=== PATIENT | female | born 1935 | race Caucasian/White ===

== ENCOUNTER 2016-07-07 00:31 | Inpatient (IN) | payer MEDICARE, OTHER ==
[2016-07-07] VITALS (10 sets, daily range): BP systolic 124–162; BP diastolic 58–71; PULSE 59–69; RESP 17–20; TEMP 97.8–98.4; O2SAT 94–100
[~2016-07-07] VITALS: Ht 160 cm; Wt 75.0 kg
[~2016-07-07 00:31] MED LIST: BACT800T5 PO; CALC500T21 PO; CLOP75 PO; DICL-86 PO; ESCI20TA PO; FOLI1 PO; INFL100P IV; LANSO15 PO; LEVO150T7 PO; METH2.5 PO; PRED5 PO; ROSU40 PO
[2016-07-07] MEDS ORDERED: CALC1TAB12 PO (00:54)
[2016-07-07] MEDS ORDERED: ROSU20 PO (00:54)
[2016-07-07] MEDS ORDERED: LEVO150T7 PO (00:54)
[2016-07-07] MEDS ORDERED: INFL100P (00:54)
[2016-07-07] MEDS ORDERED: PLAV75TA29 PO (00:54)
[2016-07-07] MEDS ORDERED: LEXA20TA PO (00:54)
[2016-07-07] MEDS ORDERED: FOLI1TAB4 PO (00:54)
[2016-07-07] MEDS ORDERED: DICL75TA PO (00:54)
[2016-07-07] MEDS ORDERED: ONDANSETRON HCL 4 MG/2 ML VIAL IVP ONE (01:00)
[2016-07-07] MEDS ORDERED: DIPHTH/TETANUS/ACEL PERTUSSIS (BOOSTER) 0.5 ML VIAL/PFS IM ONE (01:00)
[2016-07-07] MEDS: SODIUM CHLOR 0.9% 1000 ML INJ 1,000 ML IV SCH ×3 (01:09→20:44)
--- NOTE | 2016-07-07 01:14 | RADRPT ---
EXAM DATE/TIME: 07/07/2016 01:10 [facility] COMPARISON: No previous studies available for comparison. INDICATIONS : Patient states flu-like symptoms since yesterday morning and passed out twice and fell. MEDICAL HISTORY : Hypertension. Cardiovascular disease Carcinoma, breast. SURGICAL HISTORY : Left breast. ENCOUNTER: Initial ACUITY: 1 day PAIN SCORE: 0/10 LOCATION: Bilateral chest FINDINGS: There is an [id number] in place from the right internal jugular approach with the tip at the SVC. The heart size is mildly enlarged. The lungs are grossly clear. Spurs are seen in the thoracic spine. Clips are seen in the left axillary region. CONCLUSION: Mild cardiomegaly. Geo Rosado MD on July 07, 2016 at 1:12 Board Certified Radiologist. This report was verified electronically.
[2016-07-07 01:17] LABS: AUTOMATED NEUTROPHIL # 5.3 TH/MM3 (1.8-7.7); BASOPHIL # 0.1 TH/MM3 (0-0.2); BASOPHIL % 0.7 % (0.0-2.0); EOSINOPHIL % 0.6 % (0.0-4.0); HEMATOCRIT 45.7 % (35.0-46.0); HEMO FLAGS DIFF FINAL; LYMPH % 16.5 % (9.0-44.0); LYMPHOCYTE # 1.3 TH/MM3 (1.0-4.8); MEAN CELL VOLUME 88.9 FL (80.0-100.0); MEAN CORPUSCULAR HEMOGLOBIN 31.2 PG (27.0-34.0); MEAN CORPUSCULAR HGB CONC 35.1 % (32.0-36.0); MONO % 13.5 % (0.0-8.0); NEUT % 68.7 % (16.0-70.0); PLATELET COUNT 135 TH/MM3 (150-450); RED BLOOD COUNT 5.15 MIL/MM3 (4.00-5.30); RED CELL DISTRIBUTION WIDTH 15.7 % (11.6-17.2); WHITE BLOOD COUNT 7.7 TH/MM3 (4.0-11.0)
--- NOTE | 2016-07-07 01:30 | PD ---
HPI Chief Complaint: Fall Time Seen by Provider: 00:39 Travel History International Travel<30 days: No Contact w/Intl Traveler<30days: No Traveled to known affect area: No History of Present Illness HPI The patient is an 81 year old female who presents to the [facility] emergency department with a history of dizziness with recurrent falling 2 at home prior to arrival. The patient reports that she acquired a superficial laceration of the left ear, abrasion of the right knee with falling the first time. She denies hurting herself the second time. She reports that she did have a brief loss of consciousness after hitting her head the first time. She reports that she also felt disoriented. The patient reports that she first began to have nasal congestion this past . She reports that she does have some chronic sinus issues. She went and saw her primary care physician regarding this this morning and was given a prescription for an antihistamine and a nasal steroid. The patient reports that in the evening today she began to have lower abdominal pain that is reportedly severe, sharp in character and present in bilateral lower quadrants. The patient reports that the pain was coming and going. She reports that she had 4-5 episodes of loose stools associated with this. She denies having any blood in her stool or black or tarry stools. She denies having any mucus in her stool. She denies having any known sick contacts. She denies being on any antibiotic recently. She is immunocompromised related to being on prednisone when necessary and Remicade injections for rheumatoid arthritis. The patient reports that she's had shortness of breath this evening. She denies any history of lung disease. She reports that she did have a pulmonary embolism in 2009. She denies having any chest pain. She denies having any one-sided weakness, slurred speech, facial droop, difficulty with word finding ability, or vision changes associated with this. The patient denies any recent fevers, cough, neck pain, vomiting, diarrhea, urinary symptoms, or other neurologic symptoms. [facility] Past Medical History Narrative Medical The patient's past medical history is significant for coronary artery disease status post he reportedly small myocardial infarction in 2000, hypothyroid disorder, hyperlipidemia, obstructive sleep apnea, left breast lumpectomy, acid reflux, osteoporosis, rheumatoid arthritis. Hx Anticoagulant Therapy: Yes Arthritis: Yes (RHEUMATOID ARTHRITIS) Asthma: No Blood Disorders: No Anxiety: Yes Depression: Yes Heart Rhythm Problems: No Cancer: Yes (LEFT BREAST -LUMPECTOMY ) Cardiovascular Problems: Yes (MD) High Cholesterol: No Chemotherapy: No Chest Pain: No Congestive Heart Failure: No COPD: No Cerebrovascular Accident: No Diabetes: No Endocrine: Yes Gastrointestinal Disorders: Yes (GERD) Glaucoma: No Genitourinary: No Headaches: Yes Hepatitis: No Hiatal Hernia: No Hypertension: Yes Immune Disorder: No Musculoskeletal: Yes (OA, RA, OSTEOPOROSIS) Neurologic: No Psychiatric: Yes (ANXIETY) Reproductive: No Respiratory: Yes (HX PE, SLEEP APNEA/ CPAP) Myocardial Infarction: No Radiation Therapy: Yes Seizures: No Sleep Apnea: No Thyroid Disease: Yes PNEUMOCCOCAL Vaccine (Year): 2 ?: Not Past Surgical History Narrative Surgical The patient's past surgical history is significant for a hysterectomy, left breast lumpectomy Abdominal Surgery: No AICD: No Body Medical Devices: HARDWARE LEFT INDEX & SMALL FINGER Cardiac Surgery: No Ear Surgery: No Endocrine Surgery: No Eye Surgery: Yes (RASHIDA. CATARACT EXTRACT.) Genitourinary Surgery: No Gynecologic Surgery: Yes (D&C) Joint Replacement: No Oral Surgery: Yes (TONSILLECTOMY) Pacemaker: No Thoracic Surgery: Yes (LEFT BREAST LUMPECTOMY) Other Surgery: Yes Social History Alcohol Use: No Tobacco Use: No Substance Use: No Allergies-Medications (Allergen,Severity, Reaction): Coded Allergies: Aspirin (Verified Allergy, Severe, hives, 07/07/16) Reported Meds & Prescriptions Reported Meds & Active Scripts Active Reported Crestor (Rosuvastatin Calcium) 20 Mg Tab 20 Mg PO DAILY Levothyroxine (Levothyroxine Sodium) 150 Mcg Tab 150 Mcg PO DAILY Remicade Inj (Infliximab) 100 Mg Inj 0 Folate (Folic Acid) 1 Mg Tab 1 Mg PO DAILY Lexapro (Escitalopram Oxalate) 20 Mg Tab 20 Mg PO DAILY Diclofenac Sodium DR (Diclofenac Sodium) 75 Mg Tabdr 75 Mg PO DAILY Plavix (Clopidogrel Bisulfate) 75 Mg Tab 75 Mg PO DAILY Calcium 500 +D (Calcium Carbonate-Cholecalciferol) 500-400 Mg-Unit Tab 1 Tab PO DAILY Review of Systems Except as stated in HPI: all other systems reviewed are Neg General / Constitutional: No: Fever Eyes: No: Visual changes HENT: Positive: Rhinitis, Rhinorrhea, Congestion, No: Headaches Cardiovascular: Positive: Dyspnea on exertion, No: Chest Pain or Discomfort Respiratory: Positive: Shortness of Breath, No: Cough Gastrointestinal: Positive: Nausea, Diarrhea, Abdominal Pain, Changes in Bowel Habits, No: Vomiting, Hematemesis, Hematochezia, Indigestion, Dysphagia, Loss of Appetite Genitourinary: No: Dysuria Musculoskeletal: No: Pain Skin: No Rash Neurologic: Positive: Weakness (generalized weakness), Dizziness, Change in Mentation (disorientation after hitting her head that is now resolved), No: Focal Abnormalities, Slurred Speech, Paresthesia, Sensory Disturbance Psychiatric: No: Depression Endocrine: No: Polydipsia Hematologic/Lymphatic: No: Easy Bruising Physical Exam Narrative General: The patient is a well-developed well-nourished female, with conversational dyspnea, however her O2 saturations on room air 100%. Head and Neck exam: Head is normocephalic, evidence of a superficial laceration along the left lateral pinna, no active bleeding is noted. This is not a through and through laceration. There is no cartilage involvement. Eyes: Pupils are equal round and reactive to light. Nose: Midline septum with pink mucous membranes Mouth: Dentition unremarkable. Moist mucus membranes. Posterior oropharynx is not erythematous. No tonsillar hypertrophy. Uvula midline. Airway patent. Neck: No palpable lymphadenopathy. No nuchal rigidity. No thyromegaly. Cardiovascular: Regular rate and rhythm without murmurs, gallops, or rubs. Lungs: The patient has decreased breath sounds at the bases bilaterally, worse on the left compared to the right. The patient has no wheezes, rhonchi, or crackles audible. Abdomen: Soft, without tenderness to palpation in all 4 quadrants of the abdomen. No guarding, rebound, or rigidity. Normal bowel sounds are audible. No tenderness on palpation of McBurney's point. The patient has no abdominal tenderness on palpation at this time. The patient denies having any pain at this time. Extremities: No clubbing, cyanosis, or edema. 2+ pulses in all 4 extremities. The patient has an abrasion superficially over the right anterior knee . There is no step- off or crepitus. The patient has full range of active motion without any pain. The patient has no ligament laxity. No effusion. A ballotable patella. Back: No spinous process tenderness to palpation. No costovertebral angle tenderness to palpation. Neurologic Exam: Cranial nerves 2-12 were intact on exam. Strength is 5/5 in all 4 extremities. No sensory deficits noted. Data Data Last Documented VS Vital Signs Date Time Temp Pulse Resp B/P Pulse Ox O2 Delivery O2 Flow Rate FiO2 07/07/16 01:16 99 Room Air 07/07/16 00:37 97.9 63 18 162/[address] Brain W/O Iv Contrast(Rout) (07/07/16 00:54) Ct Cerv Spine W/O Contrast (07/07/16 00:54) Ondansetron Inj (Zofran Inj) (07/07/16 01:00) Zqeh-Fej-Nyivyl (Booster) Inj (Boostrix (07/07/16 01:00) C Diff Toxin Pcr (07/07/16 00:54) Stool Wbc (Leukocytes) (07/07/16 00:54) Enteric Path (Stool) (07/07/16 00:54) Electrocardiogram (07/07/16 00:54) Complete Blood Count With Diff (07/07/16 00:54) Comprehensive Metabolic Panel (07/07/16 00:54) Creatine Kinase (Cpk) (07/07/16 00:54) Ckmb (Isoenzyme) Profile (07/07/16 00:54) Troponin I (07/07/16 00:54) B-Type Natriuretic Peptide (07/07/16 00:54) Prothrombin Time / Inr (Pt) (07/07/16 00:54) Act Partial Throm Time (Ptt) (07/07/16 00:54) Lipase (07/07/16 00:54) Urinalysis - C+S If Indicated (07/07/16 00:54) D-Dimer (07/07/16 00:54) Chest, Single Ap (07/07/16 00:54) Iv Access Insert/Monitor (07/07/16 00:54) Ecg Monitoring (07/07/16 00:54) Oximetry (07/07/16 00:54) Sodium Chlor 0.9% 1000 Ml Inj (Ns 1000 M (07/07/16 01:00) Lactic Acid (07/07/16 00:57) Blood Culture (07/07/16 00:57) Urine Culture (07/07/16 02:23) Ct Pulmonary Angiogram (07/07/16 03:20) Iohexol 350 Inj (Omnipaque 350 Inj) (07/07/16 03:39) Ceftriaxone Inj (Rocephin Inj) (07/07/16 03:45) Place In Observation (07/07/16 ) Stringer Machine Tender / Telemetry CHRIS.Q8H (07/07/16 03:51) Diet Heart Healthy (07/07/16 Breakfast) Activity Oob With Assistance (07/07/16 03:51) Acetaminophen (Tylenol) (07/07/16 04:15) Ondansetron Inj (Zofran Inj) (07/07/16 04:15) Heparin Inj (Heparin Inj) (07/07/16 09:00) Ceftriaxone Inj (Rocephin Inj) (07/08/16 05:00) Admit Order (Ed Use Only) (07/07/16 04:23) Labs Laboratory Tests Test 07/07/16 07/07/16 01:00 02:23 White Blood Count 7.7 TH/MM3 Red Blood Count 5.15 MIL/MM3 Hemoglobin 16.0 GM/DL Hematocrit 45.7 % Mean Corpuscular Volume 88.9 FL Mean Corpuscular Hemoglobin 31.2 PG Mean Corpuscular Hemoglobin 35.1 % Concent Red Cell Distribution Width 15.7 % Platelet Count 135 TH/MM3 Mean Platelet Volume 8.6 FL Neutrophils (%) (Auto) 68.7 % Lymphocytes (%) (Auto) 16.5 % Monocytes (%) (Auto) 13.5 % Eosinophils (%) (Auto) 0.6 % Basophils (%) (Auto) 0.7 % Neutrophils # (Auto) 5.3 TH/MM3 Lymphocytes # (Auto) 1.3 TH/MM3 Monocytes # (Auto) 1.0 TH/MM3 Eosinophils # (Auto) 0.0 TH/MM3 Basophils # (Auto) 0.1 TH/MM3 CBC Comment DIFF FINAL Differential Comment Prothrombin Time 11.4 SEC Prothromb Time International 1.0 RATIO Ratio Activated Partial 27.5 SEC Thromboplast Time D-Dimer Quantitative (PE/DVT) 1.64 MG/L FEU Sodium Level 140 MEQ/L Potassium Level 4.1 MEQ/L Chloride Level 107 MEQ/L Carbon Dioxide Level 26.2 MEQ/L Anion Gap 7 MEQ/L Blood Urea Nitrogen 15 MG/DL Creatinine 0.88 MG/DL Estimat Glomerular Filtration 62 ML/MIN Rate Random Glucose 131 MG/DL Lactic Acid Level 1.3 mmol/L Calcium Level 8.6 MG/DL Total Bilirubin 0.6 MG/DL Aspartate Amino Transf 27 U/L (AST/SGOT) Alanine Aminotransferase 32 U/L (ALT/SGPT) Alkaline Phosphatase 66 U/L Total Creatine Kinase 65 U/L Troponin I LESS THAN 0.02 NG/ML B-Type Natriuretic Peptide 29 PG/ML Total Protein 7.8 GM/DL Albumin 3.6 GM/DL Lipase 126 U/L Urine Color LIGHT-YELLOW Urine Turbidity HAZY Urine pH 7.5 Urine Specific [place] 1.005 Urine Protein NEG mg/dL Urine Glucose (UA) NEG mg/dL Urine Ketones NEG mg/dL Urine Occult Blood NEG Urine Nitrite NEG Urine Bilirubin NEG Urine Urobilinogen LESS THAN 2.0 MG/DL Urine Leukocyte Esterase MOD Urine RBC 4 /hpf Urine WBC 12 /hpf Urine Squamous Epithelial 1 /hpf Cells Urine Transitional Epithelial <1 /hpf Cells Urine Bacteria OCC /hpf Microscopic Urinalysis Comment CULTURE INDICATED MDM Medical Decision Making Medical Screen Exam Complete: Yes Emergency Medical Condition: Yes Medical Record Reviewed: Yes Interpretation(s) Last Impressions CT Angiography 07/07/16319 Signed Impressions: Service Date/Time: Thursday, July 07, 2016 03:37 - CONCLUSION: No pulmonary embolus. Geo Rosado MD Head CT 07/07/1653 Signed Impressions: Service Date/Time: Thursday, July 07, 2016 01:50 - CONCLUSION: 1. No acute intracranial abnormality. 2. Bilateral areas of suspected prior infarction. Geo Rosado MD Chest X-Ray 07/07/1653 Signed Impressions: Service Date/Time: Thursday, July 07, 2016 01:10 - CONCLUSION: Mild cardiomegaly. Geo Rosado MD Cervical Spine CT 07/07/1653 Signed Impressions: Service Date/Time: Thursday, July 07, 2016 01:50 - CONCLUSION: No acute bony abnormality seen. There is degenerative change throughout. Geo Rosado MD Differential Diagnosis Intracranial trauma, versus cervical spine injury, versus electrolyte abnormality, versus dehydration, versus gastroenteritis, versus pulmonary embolism, versus pneumonia Narrative Course During the course of the patients emergency department visit, the patients history, examination, and differential diagnosis were reviewed with the patient. The patient had IV access obtained and blood work sent for analysis. The patient was placed on a repair armature winder with oximetry and blood pressure monitoring. An EKG was done on arrival. The patient's EKG shows a sinus rhythm heart rate of 63, no acute ST segment elevation is noted. Nonspecific T- wave abnormalities are noted. T waves are inverted in V2, V. CT scan of the head and neck was ordered. Chest x-ray, pelvic x-ray was ordered. The patient was provided normal saline IV fluids, Zofran 4 mg IV for nausea. The patients laboratory studies were reviewed and remarkable for a CBC that shows a white count 7.7, hemoglobin 16, platelets 135 with 13.5 monocytes, CMP is remarkable for glucose of 131, cardiac enzymes are negative, BNP is 29, lipase 126, lactic acid 1.3, PT PTT unremarkable, d-dimer elevated at 1.64, therefore CTA to rule out PE was ordered. Urinalysis showed moderate leukocyte esterase 4 RBCs, 12 wbc's, 1 squamous epithelial cell, occasional bacteria, culture indicated. The patient was given Rocephin 1 g IV. Radiology studies were reviewed and remarkable for a chest x-ray that showed mild cardiomegaly, no other acute abnormality. CT scan of the brain showed no acute abnormality, bilateral areas of suspected prior infarction, CT scan of the C-spine shows no acute abnormality. CTA to rule out PE shows no evidence of PE. The patients results were discussed with the patient, including the plan of care. I explained that further testing and/ or monitoring is indicated based on the patients history, examination, and/ or laboratory findings. Therefore, I recommended admission for additional evaluation. The patient expressed understanding and was agreeable with this plan. The patient was admitted to the hospital in stable condition and [facility] Physician Communication Physician Communication The patient's case was discussed with Geo Gustafson who did agree to admit the patient for further evaluation and [facility] at [facility] Diagnosis Primary Impression: Syncope Qualified Code: R55 - Syncope, unspecified syncope type Additional Impressions: Generalized weakness Shortness of breath Urinary tract infection Qualified Code: N39.0 - Urinary tract infection without hematuria, site unspecified Admitting Information Admitting Physician Requests: Admit Mary Kendall MD Jul 07, 2016 01:30
[2016-07-07 01:49] LABS: ALKALINE PHOSPHATASE 66 U/L (45-117); ALT (GPT) 32 U/L (10-53); ANION GAP 7 MEQ/L (5-15); APTT (PATIENT) 27.5 SEC (24.3-30.1); AST (GOT) 27 U/L (15-37); BICARBONATE 26.2 MEQ/L (21.0-32.0); BLOOD UREA NITROGEN 15 MG/DL (7-18); CHLORIDE 107 MEQ/L (98-107); CREATINE KINASE 65 U/L (26-192); GLOMERULAR FILTRATION RATE 62 ML/MIN (>89); POTASSIUM 4.1 MEQ/L (3.5-5.1); PROTHROMBIN TIME - PATIENT 11.4 SEC (9.8-11.6); SODIUM (NA) 140 MEQ/L (136-145); TOTAL BILIRUBIN ADULT 0.6 MG/DL (0.2-1.0)
--- NOTE | 2016-07-07 02:20 | RADRPT ---
EXAM DATE/TIME: 07/07/2016 01:50 [facility] COMPARISON: No previous studies available for comparison. INDICATIONS : Trauma. Fall. RADIATION DOSE: 31.29 CTDIvol (mGy) MEDICAL HISTORY : Cardiovascular disease. Hypertension. Carcinoma, breast. SURGICAL HISTORY : None. ENCOUNTER: Initial ACUITY: 1 day PAIN SCALE: 2/10 LOCATION: Left cranial TECHNIQUE: Multiple contiguous axial images were obtained of the head. Using automated exposure control and adj ustment of the mA and/or kV according to patient size, radiation dose was kept as low as reasonably a chievable to obtain optimal diagnostic quality images. FINDINGS: CEREBRUM: The ventricles are normal for age. There is some low density in the right basal ganglia and anterior limb of the internal capsule and at the left thalamus likely from prior infarction. No evidence of m idline shift, mass lesion, hemorrhage or acute infarction. No extra-axial fluid collections are seen . POSTERIOR FOSSA: The cerebellum and brainstem are intact. The 4th ventricle is midline. The cerebellopontine angle i s unremarkable. EXTRACRANIAL: The visualized portion of the orbits is intact. There is an air-fluid level in the right maxillary si nus. SKULL: The calvaria is intact. No evidence of skull fracture. CONCLUSION: 1. No acute intracranial abnormality. 2. Bilateral areas of suspected prior infarction. Geo Rosado MD on July 07, 2016 at 2:16 Board Certified Radiologist. This report was verified electronically.
--- NOTE | 2016-07-07 02:22 | RADRPT ---
EXAM DATE/TIME: 07/07/2016 01:50 [facility] COMPARISON: No previous studies available for comparison. INDICATIONS : Fall, hit left side of head and neck. RADIATION DOSE: 19.94 CTDIvol (mGy) MEDICAL HISTORY : Cardiovascular disease. Hypertension. Gastroesophageal reflux disease.breast cancer SURGICAL HISTORY : None. ENCOUNTER: Initial ACUITY: 1 day PAIN SCALE: 2/10 LOCATION: Left neck TECHNIQUE: Volumetric scanning of the cervical spine was performed. Multiplanar reconstructions in the sagittal, coronal and oblique axial planes were performed. Using automated exposure control and adjustment o f the mA and/or kV according to patient size, radiation dose was kept as low as reasonably achievable to obtain optimal diagnostic quality images. FINDINGS: VERTEBRAE: Normal vertebral body height. ALIGNMENT: No evidence of subluxation. C2-C3: The bony spinal canal is normal in size. No evidence of disc bulge or herniation. The neural forami na are bilaterally patent. There is facet hypertrophy. C3-C4: There is disc space narrowing and posterior osteophytic ridging and mild disc bulge. There is facet a nd uncovertebral hypertrophy. The neural foramina are bilaterally patent. C4-C5: There is disc space narrowing and posterior osteophytic ridging and mild disc bulge. There is facet a nd uncovertebral hypertrophy. The neural foramina are bilaterally patent C5-C6: There is disc space narrowing and posterior osteophytic ridging and mild disc bulge. There is facet a nd uncovertebral hypertrophy. The neural foramina are bilaterally patent C6-C7: There is disc space narrowing and posterior osteophytic ridging and mild disc bulge. There is facet a nd uncovertebral hypertrophy. The neural foramina are bilaterally patent. C7-T1: The bony spinal canal is normal in size. No evidence of disc bulge or herniation. The neural forami na are bilaterally patent. CONCLUSION: No acute bony abnormality seen. There is degenerative change throughout. Geo Rosado MD on July 07, 2016 at 2:18 Board Certified Radiologist. This report was verified electronically.
[2016-07-07 02:48] LABS: BACTERIA, URINE OCC /hpf; BLOOD, URINE NEG (NEG); COMMENT (UR) CULTURE INDICATED; CULTURE IF INDICATED CULTURE INDICATED; GLUCOSE,URINE NEG (NEG); KETONE, URINE NEG (NEG); NITRITE,URINE NEG (NEG); PH, URINE 7.5 (5.0-8.5); SQUAMOUS EPITHELIAL CELL URINE 1 /hpf (0-5); TRANSITIONAL EPI CELLS, URINE <1 /hpf; URINE COLOR LIGHT-YELLOW (YELLW/STRAW)
[2016-07-07] MEDS ORDERED: IOHEXOL 350 MG/ML 50 ML BTL (for RAD DIAG) IV ONE (03:39)
[2016-07-07] MEDS ORDERED: cefTRIAXone INJ 1,000 MG in SODIUM CHLORIDE 0.9% INJ 100 ML IV ONE (03:45)
[2016-07-07] MEDS ORDERED: ONDANSETRON HCL 4 MG/2 ML VIAL IV PUSH PRN (04:15)
--- NOTE | 2016-07-07 04:22 | RADRPT ---
EXAM DATE/TIME: 07/07/2016 03:37 [facility] COMPARISON: No previous studies available for comparison. INDICATIONS : Dizziness. Elevated D-Dimer. IV CONTRAST: 70 cc Omnipaque 350 (iohexol) IV RADIATION DOSE: 23.38 CTDIvol (mGy) MEDICAL HISTORY : Cerebrovascular disease. Hypertension. Carcinoma, breast. SURGICAL HISTORY : None. ENCOUNTER: Initial ACUITY: 1 day PAIN SCALE: 0/10 LOCATION: chest TECHNIQUE: Volumetric scanning of the chest was performed using a pulmonary embolism protocol MIP images were re constructed. Using automated exposure control and adjustment of the mA and/or kV according to patien t size, radiation dose was kept as low as reasonably achievable to obtain optimal diagnostic quality images. FINDINGS: PULMONARY ARTERIES: No filling defects are seen in the pulmonary arteries through the segmental level. LUNGS: There is minimal suspected atelectasis at the lung bases. PLEURAE: There is no pleural thickening or pleural effusion. MEDIASTINUM: There is good visualization of the great vessels of the middle mediastinum. No evidence of mediastin al or hilar adenopathy/mass. Coronary artery calcifications are present. MUSCULOSKELETAL: Within normal limits for patient age. Clips are seen in the left axillary region. MISCELLANEOUS: The visualized upper abdominal organs demonstrate no acute abnormality. There is a mild hiatal hernia . CONCLUSION: No pulmonary embolus. Geo Rosado MD on July 07, 2016 at 4:19 Board Certified Radiologist. This report was verified electronically.
--- NOTE | 2016-07-07 08:09 | HHI.HP ---
[facility] Salvatore Beaulieu DO Admission Diagnosis Syncope, Generalized weakness, shortness of breath Diagnoses: Chief Complaint: Weakness (Ana Reyna) Travel History International Travel<30 Days: No Contact w/Intl Traveler <30 Da: No Traveled to Known Affected Are: No (Ana Reyna) History of Present Illness This is a pleasant 81-year-old female with significant past medical history of rheumatoid arthritis, coronary artery disease and previous GA in 2000, PE, breast cancer, hypertension, hyperlipidemia, obstructive sleep apnea and doesn' t use CPAP, osteoporosis. Patient presented to emergency room with complaint of possible syncope, weakness and abdominal pain. According to the patient, approximately a week ago she visited her brother in [place] while he was being hospitalized. Because she has a history of rheumatoid arthritis and is on Remicade, she did use a mask at the hospital. When she returned she had sinus infection symptoms and went to see her primary care physician and was put on a nasal spray. According to the patient, yesterday she didn't feel very well, she felt poorly. She got up around 3:00 yesterday afternoon and felt dizzy and passed out, she thinks she had lost of consciousness. It was very brief, her daughter came to her side immediately and assisted her. She decided to go back to bed and laid down. Later in the evening she got up to go to the bathroom when she had severe sharp lower abdominal pain. She got up to go to the bathroom and again felt dizzy and passed out at this time she didn't think she lost consciousness. She did have approximately 4-5 loose bowel movements, non- watery, nonbloody. She felt nauseous and vomited a small amount. She denies any fever, no chills. No chest pain, no shortness of breath. Other than the dizziness, she did not have any palpitations prior to the falls. She thinks she 's been eating well and drinking appropriate amount of fluid. She reported shortness of breath to the emergency room physician however she denied to me. She does have a history of prior pulmonary emboli in 2009. She denies any other symptoms, no urinary symptoms. In the emergency room, patient was evaluated, initial vital signs were stable. Temperature 97.9, pulse rate 63, respiratory rate 18, blood pressure was 62/70. Sats 99% on room air. CBC was essentially unremarkable, WBC 7.7, hemoglobin 16, hematocrit 45. D-dimer was 1.64. Sodium 140, potassium 4.1, B1 15, creatinine 0.88. Troponin was negative. The natruretic peptide 29. Urinalysis positive for moderate leukocyte esterase and WBC. Ultram is pending. Imaging studies were completed , CT of the head show possible old infarcts. CTA was negative for pulmonary emboli. Chest x-ray did not reveal any acute findings. Last Impressions CT Angiography 07/07/16 032 Signed Impressions: Service Date/Time: Thursday, July 07, 2016 03:37 - CONCLUSION: No pulmonary embolus. Geo Rosado MD Head CT 07/07/1653 Signed Impressions: Service Date/Time: Thursday, July 07, 2016 01:50 - CONCLUSION: 1. No acute intracranial abnormality. 2. Bilateral areas of suspected prior infarction. Geo Rosado MD Chest X-Ray 07/07/1653 Signed Impressions: Service Date/Time: Thursday, July 07, 2016 01:10 - CONCLUSION: Mild cardiomegaly. Geo Rosado MD Cervical Spine CT 07/07/1653 Signed Impressions: Service Date/Time: Thursday, July 07, 2016 01:50 - CONCLUSION: No acute bony abnormality seen. There is degenerative change throughout. Geo Rosado MD Carotid Artery Ultrasound 07/07/16 0000 Signed Impressions: Service Date/Time: Thursday, July 07, 2016 08:52 - CONCLUSION: Normal examination. Eren Romero MD Patient was started on empiric antibiotics. She was given IV fluids and an anti -emetics. Blood cultures were obtained. Patient is not evaluated, indicates she feels slightly improved. Denies any abdominal pain. Patient is admitted for further evaluation and treatment. (Ana Reyna) Review of Systems Constitutional: COMPLAINS OF: Dizziness, DENIES: Diaphoretic episodes, Fatigue , Fever, Weight gain, Weight loss, Chills, Change in appetite, Night Sweats Endocrine: DENIES: Abnorml menstrual pattern, Heat/cold intolerance, Polydipsia , Polyuria, Polyphagia Eyes: DENIES: Blurred vision, Diplopia, Eye inflammation, Eye pain, Vision loss , Photosensitivity, Double Vision Ears, nose, mouth, throat: COMPLAINS OF: Nasal discharge, Running Nose, DENIES : Tinnitus, Hearing loss, Vertigo, Oral lesions, Throat pain, Hoarseness, Ear Pain, Epistaxis, Sinus Pain, Toothache, Odynophagia Respiratory: DENIES: Apneas, Cough, Snoring, Wheezing, Hemoptysis, Sputum production, Shortness of breath Cardiovascular: DENIES: Chest pain, Palpitations, Syncope, Dyspnea on Exertion , PND, Lower Extremity Edema, Orthopnea, Claudication Gastrointestinal: COMPLAINS OF: Abdominal pain, Diarrhea, Nausea, Vomiting, DENIES: Black stools, Bloody stools, Constipation, Difficulty Swallowing, Anorexia Genitourinary: DENIES: Abnormal vaginal bleeding, Dysmenorrhea, Dyspareunia, Sexual dysfunction, Urinary frequency, Urinary incontinence, Urgency, Hematuria , Dysuria, Nocturia, Vaginal discharge Musculoskeletal: COMPLAINS OF: Joint pain, DENIES: Muscle aches, Stiffness, Joint Swelling, Back pain, Neck pain Integumentary: DENIES: Abnormal pigmentation, Pruritus, Rash, Nail changes, Breast masses, Breast skin changes, Nipple discharge Hematologic/lymphatic: DENIES: Bruising, Lymphadenopathy Immunologic/allergic: DENIES: Eczema, Urticaria Neurologic: DENIES: Abnormal gait, Headache, Localized weakness, Paresthesias, Seizures, Speech Problems, Tremor, Poor Balance Psychiatric: DENIES: Anxiety, Confusion, Mood changes, Depression, Hallucinations, Agitation, Suicidal Ideation, Homicidal Ideation, Delusions ( Ana Reyna) Past Family Social History Past Medical History RA Breast cancer Hypertension Hyperlipidemia History 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 Prior stress test Pulmonary emboli Hypothyroid Obstructive sleep apnea doesn't use CPAP Acid reflux Osteoporosis Endometrial polyp Past Surgical History Left breast lumpectomy Hardware to left index and small finger LASH with BSO, hysteroscopy 09/2015 Bilateral cataract extraction Reported Medications Reported Meds & Active Scripts Active Reported Crestor (Rosuvastatin Calcium) 20 Mg Tab 20 Mg PO DAILY Levothyroxine (Levothyroxine Sodium) 150 Mcg Tab 150 Mcg PO DAILY Remicade Inj (Infliximab) 100 Mg Inj 0 Folate (Folic Acid) 1 Mg Tab 1 Mg PO DAILY Lexapro (Escitalopram Oxalate) 20 Mg Tab 20 Mg PO DAILY Diclofenac Sodium DR (Diclofenac Sodium) 75 Mg Tabdr 75 Mg PO DAILY Plavix (Clopidogrel Bisulfate) 75 Mg Tab 75 Mg PO DAILY Calcium 500 +D (Calcium Carbonate-Cholecalciferol) 500-400 Mg-Unit Tab 1 Tab PO DAILY (Ana Reyna) Allergies: Coded Allergies: Aspirin (Verified Allergy, Severe, hives, 07/07/16) Active Ordered Medications Inpatient Medications Acetaminophen (Tylenol) 650 mg Q6H PRN PO PAIN 1-10; Start 07/07/16 at 04:15 Ceftriaxone Sodium/Sodium Chloride (Rocephin Inj/NS Inj) 100 ml @ 200 mls/hr Q24H IV ; Start 07/08/16 at 05:00 Diphtheria/ Tetanus/Acell Pertussis 0.5 ml 0.5 ml ONCE ONCE IM Last administered on 07/07/16t 01:08; Start 07/07/16 at 01:00; Stop 07/07/16 at 01:01 ; Status DC Heparin Sodium (Porcine) 5000 units 5,000 units BID SQ ; Start 07/07/16 at 09:00 Ondansetron HCl (Zofran Inj) 4 mg Q4H PRN IV PUSH NAUSEA OR VOMITING; Start at 04:15 Sodium Chloride (NS 1000 ml Inj) 1,000 ml @ 75 mls/hr [id number] IV Last administered on 07/07/16t 01:09; Start 07/07/16 at 01:00 Family History Brother alive and well, hx ESRD Mother, of old age at age 93, hx thyroid disease Father, age 49, bleeding ulcer Social History Lives with daughter, no smoking, no ETOH, no substance abuse. (Ana Reyna) Physical Exam Vital Signs Vital Signs Date Time Temp Pulse Resp B/P Pulse Ox O2 Delivery O2 Flow Rate FiO2 07/07/16 07:59 97.8 63 18 147/70 97 07/07/16 06:29 62 07/07/16 05:33 61 18 143/65 99 Room Air 07/07/16 01:16 99 Room Air 07/07/16 00:37 97.9 63 18 162/70 100 Physical Exam GENERAL: This is a well-nourished, well-developed patient, in no apparent distress. SKIN: No rashes, ecchymoses or lesions. Cool and dry. HEAD: Atraumatic. Normocephalic. No temporal or scalp tenderness. EYES: Pupils equal round and reactive. Extraocular motions intact. No scleral icterus. No injection or drainage. ENT: Nose without bleeding, purulent drainage or septal hematoma. Throat without erythema, tonsillar hypertrophy or exudate. Uvula midline. Airway patent. NECK: Trachea midline. No JVD or lymphadenopathy. Supple, nontender, no meningeal signs. CARDIOVASCULAR: Regular rate and rhythm without murmurs, gallops, or rubs. RESPIRATORY: Clear to auscultation. Breath sounds equal bilaterally. No wheezes , rales, or rhonchi. GASTROINTESTINAL: Abdomen soft, non-tender, nondistended. No hepato-splenomegaly , or palpable masses. No guarding. MUSCULOSKELETAL: Extremities without clubbing, cyanosis, or edema. No joint tenderness, effusion, or edema noted. No calf tenderness. Negative Homans sign bilaterally. Rheumatoid arthritic changes hands and feet. NEUROLOGICAL: Awake and alert. Cranial nerves II through XII intact. Motor and sensory grossly within normal limits. Five out of 5 muscle strength in all muscle groups. Normal speech. Laboratory Laboratory Tests Test 07/07/16 07/07/16 01:00 02:23 White Blood Count 7.7 Red Blood Count 5.15 Hemoglobin 16.0 Hematocrit 45.7 Mean Corpuscular Volume 88.9 Mean Corpuscular Hemoglobin 31.2 Mean Corpuscular Hemoglobin 35.1 Concent Red Cell Distribution Width 15.7 Platelet Count 135 Mean Platelet Volume 8.6 Neutrophils (%) (Auto) 68.7 Lymphocytes (%) (Auto) 16.5 Monocytes (%) (Auto) 13.5 Eosinophils (%) (Auto) 0.6 Basophils (%) (Auto) 0.7 Neutrophils # (Auto) 5.3 Lymphocytes # (Auto) 1.3 Monocytes # (Auto) 1.0 Eosinophils # (Auto) 0.0 Basophils # (Auto) 0.1 CBC Comment DIFF FINAL Differential Comment Prothrombin Time 11.4 Prothromb Time International 1.0 Ratio Activated Partial 27.5 Thromboplast Time D-Dimer Quantitative (PE/DVT) 1.64 Sodium Level 140 Potassium Level 4.1 Chloride Level 107 Carbon Dioxide Level 26.2 Anion Gap 7 Blood Urea Nitrogen 15 Creatinine 0.88 Estimat Glomerular Filtration 62 Rate Random Glucose 131 Lactic Acid Level 1.3 Calcium Level 8.6 Total Bilirubin 0.6 Aspartate Amino Transf 27 (AST/SGOT) Alanine Aminotransferase 32 (ALT/SGPT) Alkaline Phosphatase 66 Total Creatine Kinase 65 Troponin I LESS THAN 0.02 B-Type Natriuretic Peptide 29 Total Protein 7.8 Albumin 3.6 Lipase 126 Urine Color LIGHT-YELLOW Urine Turbidity HAZY Urine pH 7.5 Urine Specific [place] 1.005 Urine Protein NEG Urine Glucose (UA) NEG Urine Ketones NEG Urine Occult Blood NEG Urine Nitrite NEG Urine Bilirubin NEG Urine Urobilinogen LESS THAN 2.0 Urine Leukocyte Esterase MOD Urine RBC 4 Urine WBC 12 Urine Squamous Epithelial 1 Cells Urine Transitional Epithelial <1 Cells Urine Bacteria OCC Microscopic Urinalysis Comment CULTURE INDICATED Date/Time Procedure Status Source Growth 07/07/16 02:23 Urine Culture Received Urine Clean Catch Pending 07/07/16 01:13 Aerobic Blood Culture Received Blood Peripheral Pending 07/07/16 01:13 Anaerobic Blood Culture Received Blood Peripheral Pending (Ana Reyna) Result Diagram: 07/07/16 0100 07/07/[address] Angiography 07/07/16 0320 Signed Impressions: Service Date/Time: Thursday, July 07, 2016 03:37 - CONCLUSION: No pulmonary embolus. Geo Rosado MD Head CT 07/07/1653 Signed Impressions: Service Date/Time: Thursday, July 07, 2016 01:50 - CONCLUSION: 1. No acute intracranial abnormality. 2. Bilateral areas of suspected prior infarction. Geo Rosado MD Chest X-Ray 07/07/1653 Signed Impressions: Service Date/Time: Thursday, July 07, 2016 01:10 - CONCLUSION: Mild cardiomegaly. Geo Rosado MD Cervical Spine CT 07/07/1653 Signed Impressions: Service Date/Time: Thursday, July 07, 2016 01:50 - CONCLUSION: No acute bony abnormality seen. There is degenerative change throughout. Geo Rosado MD (Ana Reyna) Assessment and Plan Problem List: (1) Syncope (2) Generalized weakness (3) Urinary tract infection (4) Rheumatoid arthritis (5) CAD (coronary artery disease) (6) Hyperlipidemia (7) GERD (gastroesophageal reflux disease) (8) HTN (hypertension) (9) Sleep apnea (10) Hypothyroid (11) Abdominal pain Assessment and Plan Admit to Dr. Salas 81-year-old elderly female admitted with weakness, syncope, complaints of abdominal pain and loose stools. Found with UTI, possible dehydration with viral syndrome. Patient immunocompromise with history of RA on Remicade. -Continue with IV fluids -Continue to follow cultures -Continue Rocephin 1 g IV daily, follow urine culture Syncope -Serial cardiac enzymes We will check orthostatics every shift 3 -continuous cardiac telemetry -Continue with cautious hydration -2-D echo, carotid ultrasound -We'll have PT ambulate History of rheumatoid arthritis, on Remicade -Stable Sleep apnea, doesn't use CPAP. Indicates that her symptoms have improved markedly. Continue to monitor Hypertension Resume home medications Hyperlipidemia Continue with statin Coronary artery disease, history of GA Serial cardiac enzymes Resume Plavix Heparin for DVT prophylaxis Home medications reviewed, initiated as indicated Plan of care has been discussed with the patient, attending and registered nurse. Further management of the patient will be dependent on the hospital course This patient was seen by myself and Dr. Salas, this H&P is written on her behalf (Ana Reyna) Assessment and Plan Patient seen and examined In ER on 07/07 at 8:30 am agree with above assessment and plan plan of care discussed with patient/ Ana WRIGHT (Ying Salas MD) Problem Qualifiers (1) Syncope: Qualified Code: R55 - Syncope, unspecified syncope type (2) Urinary tract infection: Qualified Code: N39.0 - Urinary tract infection without hematuria, site unspecified (3) Rheumatoid arthritis: Qualified Code: M05.79 - Rheumatoid arthritis involving multiple sites with positive rheumatoid factor (4) CAD (coronary artery disease): Qualified Code: I25.10 - Coronary artery disease involving [place] coronary artery of [place] heart without angina pectoris (5) Hyperlipidemia: Qualified Code: E78.5 - Hyperlipidemia, unspecified hyperlipidemia type (6) GERD (gastroesophageal reflux disease): Qualified Code: K21.9 - Gastroesophageal reflux disease, esophagitis presence not specified (7) HTN (hypertension): Qualified Code: I10 - Essential hypertension (8) Sleep apnea: Qualified Code: G47.30 - Sleep apnea, unspecified type (9) Hypothyroid: Qualified Code: E03.9 - Hypothyroidism, unspecified type (10) Abdominal pain: Qualified Code: R10.30 - Lower abdominal pain Ana Reyna Jul 07, 2016 08:09 Ying Salas MD Jul 08, 2016 08:23
[2016-07-07] MEDS: HEPARIN SODIUM - SQ 10,000 UNITS/ML VIAL SQ SCH ×2 (08:41→20:29)
[2016-07-07] MEDS: DICLOFENAC SODIUM 75 MG DELAYED RELEASE TAB PO SCH (09:00)
[2016-07-07] MEDS: LEVOTHYROXINE SODIUM 150 MCG TAB PO SCH (09:00)
[2016-07-07] MEDS: CLOPIDOGREL 75 MG TAB PO SCH (09:06)
[2016-07-07] MEDS: ATORVASTATIN 40 MG TAB PO SCH (09:07)
[2016-07-07] MEDS: CALCIUM/VITAMIN D 250 MG/125 U TAB PO SCH (09:07)
[2016-07-07] MEDS: FOLIC ACID 1 MG TAB PO SCH (09:07)
[2016-07-07] MEDS: ESCITALOPRAM OXALATE 20 MG TAB PO SCH (09:12)
--- NOTE | 2016-07-07 09:36 | RADRPT ---
EXAM DATE/TIME: 07/07/2016 08:52 [facility] COMPARISON: CT BRAIN W/O CONTRAST, July 07, 2016, 1:50. INDICATIONS : Syncope. MEDICAL HISTORY : Myocardial infarction. Hypertension. Gastroesophageal reflux disease. Thyroid disease. Anticoagulant therapy. Arthritis. Left breast cancer. Radiation therapy. SURGICAL HISTORY : Tonsillectomy. Cataract removal. Left breast lumpectomy. Dilation and curettage. Orthopedic surge ry, bilateral feet and left hand. ENCOUNTER: Initial ACUITY: 1 day PAIN SCORE: 2/10 LOCATION: Bilateral neck PEAK SYSTOLIC VELOCITIES (cm/sec): ICA/CCA RATIO: Right: 1.1 Left: 1.3 ICA: Right: 91 Left: 102 CCA: Right: 84 Left: 78 ECA: Right: 77 Left: 92 VERTEBRAL: Right: 61 antegrade Left: 48 antegrade Elevated flow velocities and ICA/CCA ratios have been found to correlate with increased degrees of vessel stenosis, calculated as percentage of diameter relative to a normal segment of distal ICA/CCA FINDINGS: RIGHT CAROTID: No significant stenosis is visualized. The waveforms are within normal limits. LEFT CAROTID: No significant stenosis is visualized. The waveforms are within normal limits. VERTEBRAL ARTERIES: Antegrade flow is seen in both vertebral arteries. MISCELLANEOUS: None. CONCLUSION: Normal examination. Eren Romero MD on July 07, 2016 at 9:33 Board Certified Radiologist. This report was verified electronically.
[2016-07-07] MEDS: ACETAMINOPHEN 325 MG TAB PO PRN ×2 (14:02→20:31)
--- NOTE | 2016-07-07 18:20 | HHI.FF ---
Face to Face Verification Diagnosis: (1) Syncope (2) GERD (gastroesophageal reflux disease) (3) Abdominal pain (4) Hypothyroid (5) HTN (hypertension) (6) Sleep apnea (7) Generalized weakness (8) Urinary tract infection Physical Therapy Order: Evaluate and Treat Home Health Nursing Order: Medical education Nursing assessment with vital signs [employer]visor [employer] Order: To Evaluate: Support services I have seen patient Beverly Matson on 07/07/16. My clinical findings support the need for the requested home health care services because: Deconditioned w/ increased weakness Need for psychosocial assistance I certify that my clinical findings support that this patient is homebound because: Unsteady gait/balance Need for psychosocial assistance Ana Reyna [facility] Jul 07, 2016 18:20
--- NOTE | 2016-07-07 20:03 | EC ---
Study Study Date:07/07/2016 STUDY CONCLUSIONS SUMMARY - Left ventricle: The cavity size was normal. Wall thickness was normal. Systolic function was normal. The estimated ejection fraction was 65%. Wall motion was normal; there were no regional wall motion abnormalities. - Aortic valve: Mildly calcified annulus. Trileaflet; mildly thickened leaflets. - Mitral valve: Mild to moderate regurgitation. - Tricuspid valve: Mild regurgitation. If LV function is below 40, please consider prescribing an ACEI or ARB or document rationale for non-use. PROCEDURE DATA STUDY STATUS: Elective. Procedure: Transthoracic echocardiography. Image quality was good. Scanning was performed from the parasternal, apical, and subcostal acoustic windows. Study completion: The patient tolerated the procedure well. Transthoracic echocardiography. M-mode, complete 2D, complete spectral Doppler, and color Doppler. Height: Height: 63in. Weight: Weight: 164.7lb. Body mass index: BMI: 29.2kg/m^2. Body surface area: BSA: 1.78m^2. Patient status: Inpatient. CARDIAC ANATOMY LEFT VENTRICLE: The cavity size was normal. Wall thickness was normal. Systolic function was normal. The estimated ejection fraction was 65%. Wall motion was normal; there were no regional wall motion abnormalities. AORTIC VALVE: Mildly calcified annulus. Trileaflet; mildly thickened leaflets. Doppler: Transvalvular velocity was within the normal range. There was no stenosis. No regurgitation. Valve area: 1.96cm^2(VTI). Indexed valve area: 1.1cm^2/m^2 (VTI). Valve area: 2.06cm^2 (Vmax). Indexed valve area: 1.16cm^2/m^2 (Vmax). Mean gradient: 4mm Hg (S). AORTA: Aortic root: The aortic root was normal in size. MITRAL VALVE: Structurally normal valve. Doppler: Transvalvular velocity was within the normal range. There was no evidence for stenosis. Mild to moderate regurgitation. LEFT ATRIUM: The atrium was normal in size. RIGHT VENTRICLE: The cavity size was normal. Wall thickness was normal. PULMONIC VALVE: Doppler: Transvalvular velocity was within the normal range. There was no evidence for stenosis. No regurgitation. TRICUSPID VALVE: Structurally normal valve. Doppler: Transvalvular velocity was within the normal range. Mild regurgitation. PULMONARY ARTERY: The main pulmonary artery was normal-sized. Systolic pressure was within the normal range. RIGHT ATRIUM: The atrium was normal in size. PERICARDIUM: There was no pericardial effusion. SYSTEMIC VEINS: Inferior vena cava: The vessel was normal in size. Patient weight: 164.7lb _Ejection fraction:_ 65-75% _Fractional shortening:_ 32% up to 5Kg 5-11.5Kg 11.6-22.9Kg 23-45Kg 45-57Kg Aortic Root 7-13 <17 13-22 17-27 17-27 LA diam 6-13 <23 24-38 33-47 37-40 RVID 10-17 7-15 7-15 7-18 8-17 LVIDd 12-22 <32 24-38 33-47 37-40 LVPW 2-4 3-6 5-7 6-8 7-8 IVS 2-4 3-6 5-7 6-8 7-8 BASIC MEASUREMENTS ADULT NORMAL Left ventricle LV internal dimension, ED, chordal *41.5 mm 43-52 level, PLAX LV internal dimension, ES, chordal 26.4 mm 23-38 level, PLAX Fractional shortening, chordal level, 36 % >29 PLAX LV posterior wall thickness, ED 10.8 mm IVS/LVPW ratio, ED 0.98 <1.3 Ventricular septum Septal thickness, ED 10.6 mm Aortic valve Leaflet separation 17 mm 15-26 Aorta Root diameter, ED 30 mm Left atrium Anterior-posterior dimension 35 mm Anterior-posterior dimension index 1.97 cm/m^2 <2.2 BASIC MEASUREMENTS ADULT NORMAL Aortic valve Leaflet separation 17 mm 15-26 DOPPLER MEASUREMENTS ADULT NORMAL Aortic valve Peak velocity, S 135 cm/s Mean velocity, S 94.4 cm/s VTI, S 27.5 cm Mean gradient, S 4 mm Hg Valve area, VTI 1.96 cm^2 Valve area index, VTI 1.1 cm^2/m^2 Valve area, Vmax 2.06 cm^2 Valve area index, Vmax 1.16 cm^2/m^2 Mitral valve Peak E-wave velocity 66.6 cm/s Peak A-wave velocity 97.7 cm/s Peak E/A ratio 0.7 Tricuspid valve Regurgitant peak velocity 242 cm/s Peak RV-RA gradient, S 23 mm Hg Maximal regurgitant velocity 242 cm/s Pulmonic valve Peak velocity, S 71.4 cm/s LEGEND: Mean values are shown as u=mean value. Asterisk (*) montalvo values outside specified normal range. Prepared and signed by Julio hCopra [id number]
--- NOTE | 2016-07-07 22:03 | EKG ---
Date Performed: 07/07/2016 Time Performed: 01:15:43 PTAGE: 81 years EKG: Sinus rhythm NONSPECIFIC ST & T-WAVE ABNORMALITY BORDERLINE ECG PREVIOUS TRACING : 07/10/2015 17.20 Compared to prior tracing no significant change DOCTOR: Julio Chopra Interpretating Date/Time 07/07/2016 22:01:44
--- NOTE | 2016-07-07 23:02 | EKG ---
Date Performed: 07/07/2016 Time Performed: 14:33:23 PTAGE: 81 years EKG: Sinus rhythm NONSPECIFIC ST & T-WAVE ABNORMALITY BORDERLINE ECG PREVIOUS TRACING : 07/07/2016 01.15 Compared to prior tracing no significant change DOCTOR: Chintan Otero Interpretating Date/Time 07/07/2016 23:01:44
[2016-07-08 00:13] VITALS: BP 139/74; PULSE 72; RESP 20; TEMP 98; O2SAT 95
[2016-07-08 04:35] VITALS: BP_SYST 172; BP_SYST 183; BP_SYST 185; BP_DIAS 79; BP_DIAS 84; PULSE 71; RESP 20; TEMP 97.5; O2SAT 95
[2016-07-08] MEDS ORDERED: cefTRIAXone 1,000 MG/NS 100 ML IV SCH ×2 (05:00)
[2016-07-08] MEDS: LEVOTHYROXINE SODIUM 150 MCG TAB PO SCH (05:02)
[2016-07-08 08:00] VITALS: PULSE 57
--- NOTE | 2016-07-08 08:28 | HHI.PR ---
Subjective Remarks no abd pain no n/v no dizziness has been out of bed slept fair tolerating diet well no cp no sob no fever Objective Objective Results - Vital Signs Date Time Temp Pulse Resp B/P Pulse Ox O2 Delivery O2 Flow Rate FiO2 07/08/16 04:35 97.5 71 20 172/79 95 07/08/16 00:13 98.0 72 20 139/74 95 07/07/16 21:31 14 07/07/16 20:00 59 07/07/16 19:32 98.4 62 20 132/66 95 07/07/16 15:42 62 17 124/58 94 07/07/16 12:09 61 17 130/64 94 127/71 125/65 07/07/16 11:10 69 Result Diagram: 07/07/169907/07/[address] Angiography 07/07/16 032 Signed Impressions: Service Date/Time: Thursday, July 07, 2016 03:37 - CONCLUSION: No pulmonary embolus. Geo Rosado MD Head CT 07/07/1653 Signed Impressions: Service Date/Time: Thursday, July 07, 2016 01:50 - CONCLUSION: 1. No acute intracranial abnormality. 2. Bilateral areas of suspected prior infarction. Geo Rosado MD Chest X-Ray 07/07/1653 Signed Impressions: Service Date/Time: Thursday, July 07, 2016 01:10 - CONCLUSION: Mild cardiomegaly. Geo Rosado MD Cervical Spine CT 07/07/1653 Signed Impressions: Service Date/Time: Thursday, July 07, 2016 01:50 - CONCLUSION: No acute bony abnormality seen. There is degenerative change throughout. 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 SKIN: No rashes, ecchymoses or lesions. Cool and dry. HEAD: Atraumatic. Normocephalic. No temporal or scalp tenderness. EYES: Pupils equal round and reactive. Extraocular motions intact. No scleral icterus. No injection or drainage. ENT: Nose without bleeding, purulent drainage or septal hematoma. Throat without erythema, tonsillar hypertrophy or exudate. Uvula midline. Airway patent. NECK: Trachea midline. No JVD or lymphadenopathy. Supple, nontender, no meningeal signs. CARDIOVASCULAR: Regular rate and rhythm without murmurs, gallops, or rubs. RESPIRATORY: Clear to auscultation. Breath sounds equal bilaterally. No wheezes , rales, or rhonchi. GASTROINTESTINAL: Abdomen soft, non-tender, nondistended. No hepato-splenomegaly , or palpable masses. No guarding. MUSCULOSKELETAL: Extremities without clubbing, cyanosis, or edema. No joint tenderness, effusion, or edema noted. No calf tenderness. Negative Homans sign bilaterally. Rheumatoid arthritic changes hands and feet. NEUROLOGICAL: Awake and alert. Cranial nerves II through XII intact. Motor and sensory grossly within normal limits. Five out of 5 muscle strength in all muscle groups. Normal speech. Urinary Catheter: No Vascular Central Line Catheter: No A/P Diagnosis: (1) Syncope (2) Generalized weakness (3) Urinary tract infection (4) Rheumatoid arthritis (5) CAD (coronary artery disease) (6) Hyperlipidemia (7) GERD (gastroesophageal reflux disease) (8) HTN (hypertension) (9) Sleep apnea (10) Hypothyroid (11) Abdominal pain Assessment and Plan 81-year-old elderly female admitted with weakness, syncope, complaints of abdominal pain and loose stools. Found with UTI, possible dehydration with viral syndrome. Patient immunocompromise with history of RA on Remicade. -Continue with IV fluids -Continue to follow cultures, pending -Continue Rocephin 1 g IV daily, follow urine culture Syncope -Serial cardiac enzymes-negative We will check orthostatics every shift 3-stable, no changes -continuous cardiac telemetry -Continue with cautious hydration -2-D echo EF 65% -CUS no stenosis -PT for OOB History of rheumatoid arthritis, on Remicade -Stable Sleep apnea, doesn't use CPAP. Indicates that her symptoms have improved markedly. Continue to monitor Hypertension-elevated this morning continue home medications Hyperlipidemia Continue with statin Coronary artery disease, history of [place] Serial cardiac enzymes continue Plavix Heparin for DVT prophylaxis CM for HHC/PT Plan to discharge later today when UC back F/U PCP Diet-heart health Activity-as tolerated D/W RN D/W Dr. Salas D/W pt D/W CM This patient was seen by myself and Dr. Salas, this note is written on her behalf Problem Qualifiers (1) Syncope: Qualified Code: R55 - Syncope, unspecified syncope type (2) Urinary tract infection: Qualified Code: N39.0 - Urinary tract infection without hematuria, site unspecified (3) Rheumatoid arthritis: Qualified Code: M05.79 - Rheumatoid arthritis involving multiple sites with positive rheumatoid factor (4) CAD (coronary artery disease): Qualified Code: I25.10 - Coronary artery disease involving [place] coronary artery of [place] heart without angina pectoris (5) Hyperlipidemia: Qualified Code: E78.5 - Hyperlipidemia, unspecified hyperlipidemia type (6) GERD (gastroesophageal reflux disease): Qualified Code: K21.9 - Gastroesophageal reflux disease, esophagitis presence not specified (7) HTN (hypertension): Qualified Code: I10 - Essential hypertension (8) Sleep apnea: Qualified Code: G47.30 - Sleep apnea, unspecified type (9) Hypothyroid: Qualified Code: E03.9 - Hypothyroidism, unspecified type (10) Abdominal pain: Qualified Code: R10.30 - Lower abdominal pain Ana Reyna Jul 08, 2016 08:28
--- NOTE | 2016-07-08 08:31 | HHI.DCPOC ---
Discharge Care Plan Diagnosis: (1) Syncope (2) Urinary tract infection (3) Generalized weakness Your Health Problems Are: Difficulty with ADL Goals to Promote Your Health * To prevent worsening of your condition and complications * To maintain your health at the optimal level Directions to Meet Your Goals Take your medications as prescribed Follow your dietary instruction Follow activity as directed Keep your appointments as scheduled Take your immunizations and boosters as scheduled If your symptoms worsen call your PCP, if no PCP go to Urgent Care Center or Emergency Room Smoking is Dangerous to Your Health. Avoid second hand smoke Call the 24-hour hour crisis hotline for domestic abuse at Ana Reyna Jul 08, 2016 08:31
[2016-07-08] MEDS ORDERED: CEPH-460 PO (08:37)
[2016-07-08] MEDS: HEPARIN SODIUM - SQ 10,000 UNITS/ML VIAL SQ SCH (09:00)
[2016-07-08] MEDS: CALCIUM/VITAMIN D 250 MG/125 U TAB PO SCH (09:05)
[2016-07-08] MEDS: CLOPIDOGREL 75 MG TAB PO SCH (09:05)
[2016-07-08] MEDS: ESCITALOPRAM OXALATE 20 MG TAB PO SCH (09:06)
[2016-07-08] MEDS: FOLIC ACID 1 MG TAB PO SCH (09:06)
[2016-07-08] MEDS: ATORVASTATIN 40 MG TAB PO SCH (09:06)
[2016-07-08] MEDS: DICLOFENAC SODIUM 75 MG DELAYED RELEASE TAB PO SCH (09:06)
[2016-07-08] MEDS: ACETAMINOPHEN 325 MG TAB PO PRN (09:19)
--- NOTE | 2016-07-08 16:46 | HHI.DS ---
Discharge Summary Admission Date Jul 07, 2016 at 04:25 Discharge Date: Jul 08, 2016 Admitting Diagnosis Syncope, Generalized weakness, shortness of breath (1) Syncope (2) Generalized weakness (3) Urinary tract infection (4) Rheumatoid arthritis (5) CAD (coronary artery disease) (6) Hyperlipidemia (7) GERD (gastroesophageal reflux disease) (8) HTN (hypertension) (9) Sleep apnea (10) Hypothyroid (11) Abdominal pain CBC/BMP: 07/07/16 0100 07/07/16 0100 Significant Findings Laboratory Tests Test 07/07/16 07/07/16 07/07/16 07/07/16 01:00 02:23 10:53 14:59 Hemoglobin 16.0 GM/DL (11.6-15.3) Platelet Count 135 TH/MM3 (150-450) Monocytes (%) (Auto) 13.5 % (0.0-8.0) Monocytes # (Auto) 1.0 TH/MM3 (0-0.9) D-Dimer Quantitative (PE/DVT) 1.64 MG/L FEU (0.00-0.50) Estimat Glomerular Filtration 62 ML/MIN (>89) Rate Random Glucose 131 MG/DL (74-106) Troponin I LESS THAN 0.02 LESS THAN 0.02 LESS THAN 0.02 NG/ML NG/ML NG/ML (0.02-0.05) (0.02-0.05) (0.02-0.05) Urine Turbidity HAZY (CLEAR) Urine Leukocyte Esterase MOD (NEG) Urine RBC 4 /hpf (0-3) Urine WBC 12 /hpf (0-5) Urine Bacteria OCC /hpf (NONE) Imaging Last Impressions CT Angiography 07/07/16 0320 Signed Impressions: Service Date/Time: Thursday, July 07, 2016 03:37 - CONCLUSION: No pulmonary embolus. Geo Rosado MD Head CT 07/07/1653 Signed Impressions: Service Date/Time: Thursday, July 07, 2016 01:50 - CONCLUSION: 1. No acute intracranial abnormality. 2. Bilateral areas of suspected prior infarction. Geo Rosado MD Chest X-Ray 07/07/1653 Signed Impressions: Service Date/Time: Thursday, July 07, 2016 01:10 - CONCLUSION: Mild cardiomegaly. Geo Rosado MD Cervical Spine CT 07/07/16 0054 Signed Impressions: Service Date/Time: Thursday, July 07, 2016 01:50 - CONCLUSION: No acute bony abnormality seen. There is degenerative change throughout. Geo Rosado MD Carotid Artery Ultrasound 07/07/16 0000 Signed Impressions: Service Date/Time: Thursday, July 07, 2016 08:52 - CONCLUSION: Normal examination. Eren Romero MD Hospital Course This is a pleasant 81-year-old female with significant past medical history of rheumatoid arthritis, coronary artery disease and previous NC in 2000, PE, breast cancer, hypertension, hyperlipidemia, obstructive sleep apnea and doesn' t use CPAP, osteoporosis. Patient presented to emergency room with complaint of possible syncope, weakness and abdominal pain. According to the patient, approximately a week ago she visited her brother in [place] while he was being hospitalized. Because she has a history of rheumatoid arthritis and is on Remicade, she did use a mask at the hospital. When she returned she had sinus infection symptoms and went to see her primary care physician and was put on a nasal spray. According to the patient, yesterday she didn't feel very well, she felt poorly. She got up around 3:00 yesterday afternoon and felt dizzy and passed out, she thinks she had lost of consciousness. It was very brief, her daughter came to her side immediately and assisted her. She decided to go back to bed and laid down. Later in the evening she got up to go to the bathroom when she had severe sharp lower abdominal pain. She got up to go to the bathroom and again felt dizzy and passed out at this time she didn't think she lost consciousness. She did have approximately 4-5 loose bowel movements, non- watery, nonbloody. She felt nauseous and vomited a small amount. She denies any fever, no chills. No chest pain, no shortness of breath. Other than the dizziness, she did not have any palpitations prior to the falls. She thinks she 's been eating well and drinking appropriate amount of fluid. She reported shortness of breath to the emergency room physician however she denied to me. She does have a history of prior pulmonary emboli in 2009. She denies any other symptoms, no urinary symptoms. In the emergency room, patient was evaluated, initial vital signs were stable. Temperature 97.9, pulse rate 63, respiratory rate 18, blood pressure was 62/70. Sats 99% on room air. CBC was essentially unremarkable, WBC 7.7, hemoglobin 16, hematocrit 45. D-dimer was 1.64. Sodium 140, potassium 4.1, B1 15, creatinine 0.88. Troponin was negative. The natruretic peptide 29. Urinalysis positive for moderate leukocyte esterase and WBC. Imaging studies were completed, CT of the head show possible old infarcts. CTA was negative for pulmonary emboli. Chest x- ray did not reveal any acute findings. Last Impressions CT Angiography 07/07/16 0320 Signed Impressions: Service Date/Time: Thursday, July 07, 2016 03:37 - CONCLUSION: No pulmonary embolus. Geo Rosado MD Head CT 07/07/16 005 Signed Impressions: Service Date/Time: Thursday, July 07, 2016 01:50 - CONCLUSION: 1. No acute intracranial abnormality. 2. Bilateral areas of suspected prior infarction. Geo Rosado MD Chest X-Ray 07/07/16 005 Signed Impressions: Service Date/Time: Thursday, July 07, 2016 01:10 - CONCLUSION: Mild cardiomegaly. Geo Rosado MD Cervical Spine CT 07/07/1653 Signed Impressions: Service Date/Time: Thursday, July 07, 2016 01:50 - CONCLUSION: No acute bony abnormality seen. There is degenerative change throughout. Geo Rosado MD Carotid Artery Ultrasound 07/07/16 0000 Signed Impressions: Service Date/Time: Thursday, July 07, 2016 08:52 - CONCLUSION: Normal examination. Eren Romero MD Patient was started on empiric antibiotics. She was given IV fluids and an anti -emetics. Blood cultures were obtained. Patient was admitted for further evaluation and treatment. (1) Syncope (2) Generalized weakness (3) Urinary tract infection (4) Rheumatoid arthritis (5) CAD (coronary artery disease) (6) Hyperlipidemia (7) GERD (gastroesophageal reflux disease) (8) HTN (hypertension) (9) Sleep apnea (10) Hypothyroid (11) Abdominal pain During the course of the hospitalization, the following took place: 81-year-old elderly female admitted with weakness, syncope, complaints of abdominal pain and loose stools. Found with UTI, possible dehydration with viral syndrome. Patient immunocompromise with history of RA on Remicade. -put on with IV fluids -Continue to follow cultures, indeterminate -Put on Rocephin 1 g IV daily, changed to Ceftin on discharge. Syncope, etiology unclear, poss. sec. to dehydration. -Serial cardiac enzymes-negative -orthos done, negative -continuous cardiac telemetry, no ectopy -hydrated -2-D echo EF 65% -CUS no stenosis -PT for OOB -pt. did well, no syncope with ambulation. History of rheumatoid arthritis, on Remicade -Stable Sleep apnea, doesn't use CPAP. Indicated that her symptoms have improved markedly. Continue to monitor Hypertension- continued home medications Hyperlipidemia Continue with statin Coronary artery disease, history of [place] Serial cardiac enzymes done, negative continued Plavix Heparin for DVT prophylaxis CM for HHC/PT Pt stable for discharge no syncope, well hydrated. No dizziness Discharged home with HHC F/U PCP Diet-heart health Activity-as tolerated Pt Condition on Discharge: Stable Discharge Disposition: Disch w/ Home Health Serv Discharge Instructions DIET: Follow Instructions for: Heart Healthy Diet Activities you can perform: Weight Bearing as Leif Follow up Referrals: PCP Follow-up New Medications: Cephalexin (Keflex) 500 Mg Cap 500 MG PO Q12H Infection #10 Ref 0 CAP Continued Medications: Calcium Carbonate-Cholecalciferol (Calcium 500 +D) 500-400 Mg-Unit Tab 1 TAB PO DAILY Calcium Supplement Ref 0 TAB Clopidogrel (Plavix) 75 Mg Tab 75 MG PO DAILY Blood Clot Prevention #30 Ref [address] DR (Diclofenac Sodium DR) 75 Mg Tabdr 75 MG PO DAILY #30 Ref 0 TAB Escitalopram (Lexapro) 20 Mg Tab 20 MG PO DAILY #30 Ref 0 TAB Folic Acid (Folate) 1 Mg Tab 1 MG PO DAILY Nutritional Supplement Ref 0 TAB Infliximab Inj (Remicade Inj) 100 Mg Inj 0 Levothyroxine (Levothyroxine) 150 Mcg Tab 150 MCG PO DAILY Thyroid #30 Ref 0 TAB Rosuvastatin (Crestor) 20 Mg Tab 20 MG PO DAILY Cholesterol Management #30 Ref 0 TAB Ana Reyna Jul 08, 2016 16:46
== END 2016-07-08 12:06 | disposition home health service (06) | DRG 641 ==
LOC: NEPE 00:31 → NEDA 04:25 → NEPHCDU 05:43
PROVIDERS: ADMIT Internal Medicine; ATTEND Internal Medicine
DX: E86.0 Dehydration (principal); N39.0 Urinary tract infection, site not specified; M06.9 Rheumatoid arthritis, unspecified; R55 Syncope and collapse; F32.9 Major depressive disorder, single episode, unspecified; E03.9 Hypothyroidism, unspecified; E78.5 Hyperlipidemia, unspecified; I25.10 Atherosclerotic heart disease of native coronary artery without angina pectoris; I10 Essential (primary) hypertension; K21.9 Gastro-esophageal reflux disease without esophagitis; G47.33 Obstructive sleep apnea (adult) (pediatric); R10.30 Lower abdominal pain, unspecified; M81.0 Age-related osteoporosis without current pathological fracture; W19.XXXA Unspecified fall, initial encounter; S01.312A Laceration without foreign body of left ear, initial encounter; S80.211A Abrasion, right knee, initial encounter; F41.9 Anxiety disorder, unspecified; I25.2 Old myocardial infarction; Z86.711 Personal history of pulmonary embolism; Z85.3 Personal history of malignant neoplasm of breast; Y92.009 Unspecified place in unspecified non-institutional (private) residence as the place of occurrence of the external cause
CPT/HCPCS: 70450; 71010; 71275; 72125; 80053; 81001; 82550; 83605; 83690; 83880; 84484; 85025; 85379; 85610; 85730; 87040; 87086; 90471; 90715; 93005; 93306; 93880; 96361; 96365; 96375; G0378; J0696; J1644; J2405; J7030; Q9967

== ENCOUNTER 2017-06-15 19:26 | Emergency (ER) | payer MEDICARE, OTHER ==
[~2017-06-15] VITALS: Ht 160 cm; Wt 75.0 kg
[~2017-06-15 19:26] MED LIST changes: -BACT800T5 PO; +CALC1TAB12 PO; -CALC500T21 PO; +CEPH-460 PO; -CLOP75 PO; -DICL-86 PO; +DICL75TA PO; -ESCI20TA PO; -FOLI1 PO; +FOLI1TAB4 PO; +INFL100P; -INFL100P IV; -LANSO15 PO; +LEXA20TA PO; -METH2.5 PO; +PLAV75TA29 PO; -PRED5 PO; +ROSU20 PO; -ROSU40 PO
[2017-06-15 19:37] VITALS: BP 156/88; PULSE 65; RESP 16; TEMP 98.9; O2SAT 97
[2017-06-15 19:41] VITALS: RESP 16; O2SAT 99
--- NOTE | 2017-06-15 19:44 | PD ---
HPI Chief Complaint: Syncope/Near-Syncope Time Seen by Provider: 19:37 Travel History International Travel<30 days: No Contact w/Intl Traveler<30days: No Traveled to known affect area: No History of Present Illness HPI The patient is a 82-year-old female who presents to the emergency department via EMS for syncope. The [facility], when she became lightheaded, warm, diaphoretic. The patient then apparently lost consciousness. According to EMS people sitting next the patient noted that she started to "go out "and placed her gently against a table. The patient had a loss of consciousness for approximately 2 minutes according to EMS. The patient now complains of just generalized fatigue, but denied any chest pain, shortness of breath, palpitations, nausea, or vomiting prior to the syncopal episode. The patient was sitting down when her symptoms started. She does have a history of polycythemia and had 400 cc of blood removed today by her oncologist/manager leadership development, Dr. Paris. The patient also has a port right chest wall for infusions of Remicade for rheumatic arthritis. She denies any known history of arrhythmia or valvular disorders. The patient's graphics production specialist is Dr. Joel Kendall. The patient's primary physician is Dr. Salvatore Beaulieu. FORMERLY [facility] Past Medical History Hx Anticoagulant Therapy: Yes Arthritis: Yes (RHEUMATOID ARTHRITIS) Asthma: No Blood Disorders: No Anxiety: Yes Depression: Yes Heart Rhythm Problems: No Cancer: Yes (LEFT BREAST -LUMPECTOMY ) Cardiovascular Problems: Yes ([place]) High Cholesterol: No Chemotherapy: No Chest Pain: No Congestive Heart Failure: No COPD: No Cerebrovascular Accident: No Diabetes: No Endocrine: Yes Gastrointestinal Disorders: Yes (GERD) GERD: Yes Glaucoma: No Genitourinary: No Headaches: Yes Hepatitis: No Hiatal Hernia: No Hypertension: Yes Immune Disorder: No Kidney Stones: No Musculoskeletal: Yes (OA, RA, OSTEOPOROSIS) Neurologic: No Psychiatric: Yes (ANXIETY) Reproductive: No Respiratory: Yes (HX PE, SLEEP APNEA/ CPAP) Myocardial Infarction: No Radiation Therapy: Yes Renal Failure: No Seizures: No Sleep Apnea: Yes Thyroid Disease: Yes Ulcer: No PNEUMOCCOCAL Vaccine (Year): 2 ?: Not Past Surgical History Abdominal Surgery: No AICD: No Body Medical Devices: HARDWARE LEFT INDEX & SMALL FINGER Cardiac Surgery: No Ear Surgery: No Endocrine Surgery: No Eye Surgery: Yes (RASHIDA. CATARACT EXTRACT.) Genitourinary Surgery: No Gynecologic Surgery: Yes (D&C) Joint Replacement: No Oral Surgery: Yes (TONSILLECTOMY) Pacemaker: No Thoracic Surgery: Yes (LEFT BREAST LUMPECTOMY) Other Surgery: Yes Social History Alcohol Use: No Tobacco Use: No Substance Use: No Allergies-Medications (Allergen,Severity, Reaction): Coded Allergies: aspirin (Unverified Allergy, Severe, hives, 12/28/16) Reported Meds & Prescriptions Reported Meds & Active Scripts Active Keflex (Cephalexin) 500 Mg Cap 500 Mg PO Q12H Reported Crestor (Rosuvastatin Calcium) 20 Mg Tab 20 Mg PO DAILY Levothyroxine (Levothyroxine Sodium) 150 Mcg Tab 150 Mcg PO DAILY Remicade Inj (Infliximab) 100 Mg Inj 0 Folate (Folic Acid) 1 Mg Tab 1 Mg PO DAILY Lexapro (Escitalopram Oxalate) 20 Mg Tab 20 Mg PO DAILY Diclofenac Sodium DR (Diclofenac Sodium) 75 Mg Tabdr 75 Mg PO DAILY Plavix (Clopidogrel Bisulfate) 75 Mg Tab 75 Mg PO DAILY Calcium 500 +D (Calcium Carbonate-Cholecalciferol) 500-400 Mg-Unit Tab 1 Tab PO DAILY Review of Systems Except as stated in HPI: all other systems reviewed are Neg HENT: Positive: Lightheadedness, No: Headaches Cardiovascular: Positive: Diaphoresis, Syncope, No: Chest Pain or Discomfort, Palpitations, Irregular Rhythm, Tachycardia Respiratory: No: Shortness of Breath Gastrointestinal: No: Nausea, Vomiting Musculoskeletal: Positive: Weakness Neurologic: Positive: Syncope, No: Focal Abnormalities Physical Exam Narrative GENERAL: Awake, alert, pleasant 82-year-old female who appears her stated age is in no acute respiratory distress. SKIN: Focused skin assessment warm/dry. HEAD: Atraumatic. Normocephalic. EYES: Pupils equal and round. No scleral icterus. No injection or drainage. ENT: No nasal bleeding or discharge. Mucous membranes pink and moist. NECK: Trachea midline. No JVD. CARDIOVASCULAR: Regular rate and rhythm. No murmur appreciated. Port in place right chest wall. RESPIRATORY: No accessory muscle use. Clear to auscultation. Breath sounds equal bilaterally. GASTROINTESTINAL: Abdomen soft, non-tender, nondistended. No rebound tenderness. MUSCULOSKELETAL: No obvious deformities. No clubbing. No cyanosis. No edema. Calves are soft bilaterally. NEUROLOGICAL: Awake and alert. No obvious cranial nerve deficits. Motor grossly within normal limits. Normal speech. Nonfocal. PSYCHIATRIC: Appropriate mood and affect; insight and judgment normal. Data Data Last Documented VS Vital Signs Date Time Temp Pulse Resp B/P (MAP) Pulse Ox O2 Delivery O2 Flow Rate FiO2 06/15/17 19:58 74 16 126/60 (82) 83 17 126/69 (88) 87 17 122/75 (91) 06/15/17 19:41 99 Room Air 06/15/17 19:37 98.9 Orders Orders Electrocardiogram (06/15/17 19:37) Complete Blood Count With Diff (06/15/17 19:37) Comprehensive Metabolic Panel (06/15/17 19:37) Magnesium (Mg) (06/15/17 19:37) Ckmb (Isoenzyme) Profile (06/15/17 19:37) Troponin I (06/15/17 19:37) Ecg Monitoring (06/15/17 19:37) Iv Access Insert/Monitor (06/15/17 19:37) Oximetry (06/15/17 19:37) Sodium Chloride 0.9% Flush (Ns Flush) (06/15/17 19:45) Orthostatic Vital Signs (06/15/17 19:37) Sodium Chlorid 0.9% 500 Ml Inj (Ns 500 M (06/15/17 19:45) Potassium Chloride (Kcl) (06/15/17 21:00) Ed Discharge Order (06/15/17 21:32) Labs Laboratory Tests Test 06/15/17 19:58 White Blood Count 8.3 TH/MM3 Red Blood Count 4.57 MIL/MM3 Hemoglobin 14.3 GM/DL Hematocrit 41.4 % Mean Corpuscular Volume 90.6 FL Mean Corpuscular Hemoglobin 31.3 PG Mean Corpuscular Hemoglobin Concent 34.6 % Red Cell Distribution Width 15.6 % Platelet Count 137 TH/MM3 Mean Platelet Volume 8.4 FL Neutrophils (%) (Auto) 53.8 % Lymphocytes (%) (Auto) 30.3 % Monocytes (%) (Auto) 11.5 % Eosinophils (%) (Auto) 3.1 % Basophils (%) (Auto) 1.3 % Neutrophils # (Auto) 4.5 TH/MM3 Lymphocytes # (Auto) 2.5 TH/MM3 Monocytes # (Auto) 1.0 TH/MM3 Eosinophils # (Auto) 0.3 TH/MM3 Basophils # (Auto) 0.1 TH/MM3 CBC Comment DIFF FINAL Differential Comment Blood Urea Nitrogen 13 MG/DL Creatinine 0.88 MG/DL Random Glucose 153 MG/DL Total Protein 6.2 GM/DL Albumin 2.9 GM/DL Calcium Level 8.3 MG/DL Magnesium Level 2.0 MG/DL Alkaline Phosphatase 58 U/L Aspartate Amino Transf (AST/SGOT) 21 U/L Alanine Aminotransferase (ALT/SGPT) 21 U/L Total Bilirubin 0.4 MG/DL Sodium Level 142 MEQ/L Potassium Level 3.1 MEQ/L Chloride Level 110 MEQ/L Carbon Dioxide Level 23.3 MEQ/L Anion Gap 9 MEQ/L Estimat Glomerular Filtration Rate 62 ML/MIN Total Creatine Kinase 51 U/L Troponin I LESS THAN 0.02 NG/ML MDM Medical Decision Making Medical Screen Exam Complete: Yes Emergency Medical Condition: Yes Medical Record Reviewed: Yes Interpretation(s) EKG reveals normal sinus rhythm with a rate of 62. Q wave noted in lead 3. Nonspecific ST and T-wave changes. Laboratory Tests Test 06/15/17 19:58 White Blood Count 8.3 TH/MM3 Red Blood Count 4.57 MIL/MM3 Hemoglobin 14.3 GM/DL Hematocrit 41.4 % Mean Corpuscular Volume 90.6 FL Mean Corpuscular Hemoglobin 31.3 PG Mean Corpuscular Hemoglobin Concent 34.6 % Red Cell Distribution Width 15.6 % Platelet Count 137 TH/MM3 Mean Platelet Volume 8.4 FL Neutrophils (%) (Auto) 53.8 % Lymphocytes (%) (Auto) 30.3 % Monocytes (%) (Auto) 11.5 % Eosinophils (%) (Auto) 3.1 % Basophils (%) (Auto) 1.3 % Neutrophils # (Auto) 4.5 TH/MM3 Lymphocytes # (Auto) 2.5 TH/MM3 Monocytes # (Auto) 1.0 TH/MM3 Eosinophils # (Auto) 0.3 TH/MM3 Basophils # (Auto) 0.1 TH/MM3 CBC Comment DIFF FINAL Differential Comment Blood Urea Nitrogen 13 MG/DL Creatinine 0.88 MG/DL Random Glucose 153 MG/DL Total Protein 6.2 GM/DL Albumin 2.9 GM/DL Calcium Level 8.3 MG/DL Magnesium Level 2.0 MG/DL Alkaline Phosphatase 58 U/L Aspartate Amino Transf (AST/SGOT) 21 U/L Alanine Aminotransferase (ALT/SGPT) 21 U/L Total Bilirubin 0.4 MG/DL Sodium Level 142 MEQ/L Potassium Level 3.1 MEQ/L Chloride Level 110 MEQ/L Carbon Dioxide Level 23.3 MEQ/L Anion Gap 9 MEQ/L Estimat Glomerular Filtration Rate 62 ML/MIN Total Creatine Kinase 51 U/L Troponin I LESS THAN 0.02 NG/ML Differential Diagnosis Differential diagnosis includes orthostatic hypotension, vasovagal syncope, cardiogenic syncope, arrhythmia, aortic stenosis, adverse reaction secondary to phlebotomy, dehydration, electrolyte abnormality. Narrative Course IV was established, labs are drawn and sent, and the patient was placed on cardiac telemetry monitoring and continuous pulse oximetry monitoring. EKG was ordered and interpreted. Orthostatic vital signs were obtained. The patient was administered 500 cc of normal saline. I reviewed the patient's EMR, she had an echocardiogram on July 07, 2016 which revealed an ejection fraction 65%, no aortic stenosis. The patient had ultrasound of the carotids performed on July 07, 2016 which was unremarkable. She had a CT pulmonary angiogram at that time which was negative. Orthostatic vital signs are unremarkable. The patient's hemoglobin is within normal limits. Potassium was 3.1, was replaced orally. The patient was reevaluated, her symptoms have improved. The patient is had an appropriate workup with the last year, findings were negative. The patient was kept on cardiac telemetry monitoring for 2 hours, she was in a normal sinus rhythm, no evidence of ectopy. Patient will be provided a copy of her labs at discharge, is advised to follow-up with her primary physician. Return if symptoms worsen or progress. Diagnosis Primary Impression: Syncope Qualified Codes: R55 - Syncope and collapse Patient Instructions: General Instructions Additional Instructions: Plenty of fluids to stay hydrated. Follow-up with her primary physician. Return if symptoms worsen or progress. Please provide the patient a copy of her labs at discharge. Disposition: 01 DISCHARGE HOME Condition: Stable Carl Fowler MD Jun 15, 2017 19:43
[2017-06-15] MEDS ORDERED: SODIUM CHLORIDE 0.9% FLUSH 10 ML FLUSH IVF PRN (19:45)
[2017-06-15] MEDS ORDERED: SODIUM CHLORID 0.9% 500 ML INJ 500 ML IV ONE (19:45)
[2017-06-15 19:58] VITALS: BP_SYST 122; BP_SYST 126; BP_DIAS 60; BP_DIAS 69; BP_DIAS 75; RESP 16; RESP 17
[2017-06-15 20:22] LABS: AUTOMATED NEUTROPHIL # 4.5 TH/MM3 (1.8-7.7); BASOPHIL # 0.1 TH/MM3 (0-0.2); BASOPHIL % 1.3 % (0.0-2.0); EOSINOPHIL # 0.3 TH/MM3 (0-0.4); EOSINOPHIL % 3.1 % (0.0-4.0); HEMATOCRIT 41.4 % (35.0-46.0); HEMOGLOBIN 14.3 GM/DL (11.6-15.3); LYMPH % 30.3 % (9.0-44.0); LYMPHOCYTE # 2.5 TH/MM3 (1.0-4.8); MEAN CELL VOLUME 90.6 FL (80.0-100.0); MEAN CORPUSCULAR HEMOGLOBIN 31.3 PG (27.0-34.0); MEAN CORPUSCULAR HGB CONC 34.6 % (32.0-36.0); MEAN PLATELET VOLUME 8.4 FL (7.0-11.0); MONO % 11.5 % (0.0-8.0); NEUT % 53.8 % (16.0-70.0); PLATELET COUNT 137 TH/MM3 (150-450); RED BLOOD COUNT 4.57 MIL/MM3 (4.00-5.30); RED CELL DISTRIBUTION WIDTH 15.6 % (11.6-17.2); WHITE BLOOD COUNT 8.3 TH/MM3 (4.0-11.0)
[2017-06-15 20:37] LABS: ALT (GPT) 21 U/L (10-53)
[2017-06-15 20:40] LABS: ALBUMIN 2.9 GM/DL (3.4-5.0); AST (GOT) 21 U/L (15-37); BICARBONATE 23.3 MEQ/L (21.0-32.0); BLOOD UREA NITROGEN 13 MG/DL (7-18); CALCIUM 8.3 MG/DL (8.5-10.1); CHLORIDE 110 MEQ/L (98-107); CREATININE 0.88 MG/DL (0.50-1.00); GLOMERULAR FILTRATION RATE 62 ML/MIN (>89); GLUCOSE,RANDOM 153 MG/DL (74-106); SODIUM (NA) 142 MEQ/L (136-145)
[2017-06-15 20:41] LABS: ALKALINE PHOSPHATASE 58 U/L (45-117); TOTAL BILIRUBIN ADULT 0.4 MG/DL (0.2-1.0); TOTAL PROTEIN 6.2 GM/DL (6.4-8.2); TROPONIN I LESS THAN 0.02 NG/ML (0.02-0.05)
[2017-06-15] MEDS ORDERED: POTASSIUM CHLORIDE 20 MEQ CONTROLLED RELEASE TAB PO ONE (21:00)
--- NOTE | 2017-06-15 21:10 | EKG ---
Date Performed: 06/15/2017 Time Performed: 19:39:10 PTAGE: 82 years EKG: Sinus rhythm NONSPECIFIC ST & T-WAVE ABNORMALITY BORDERLINE ECG No significant change from prior electrocardiogra m. PREVIOUS TRACING : 07/07/2016 14.33 DOCTOR: Fred Vale Interpretating Date/Time 06/15/2017 21:10:07
== END 2017-06-15 21:57 | disposition home or self-care (01) ==
LOC: NEPE 19:26
DX: R55 Syncope and collapse (principal); E07.9 Disorder of thyroid, unspecified; M06.9 Rheumatoid arthritis, unspecified; F32.9 Major depressive disorder, single episode, unspecified
CPT/HCPCS: 80053; 82550; 83735; 84484; 85025; 93005; 96360; 99284; J1642; J7040

== ENCOUNTER 2017-08-03 11:34 | Observation (INO) | payer MEDICARE, OTHER ==
[~2017-08-03] VITALS: Ht 160 cm; Wt 75.0 kg
[2017-08-03 12:05] VITALS: BP 177/87; PULSE 80; RESP 16; TEMP 97.3; O2SAT 99
--- NOTE | 2017-08-03 12:40 | PD ---
HPI Chief Complaint: Chest Pain Time Seen by Provider: 12:23 Travel History International Travel<30 days: No Contact w/Intl Traveler<30days: No Traveled to known affect area: No History of Present Illness HPI 82-year-old female that presents to the ED for evaluation of chest pain. Per patient she had chest pain this morning. Per patient he went away after she started nitroglycerin. Patient states that she's had chest pain before. She hasn't had anything recently. Per patient she hasn't had a stress testing more of a year. She follows with Dr. Kendall for cardiology. She is actually due for a checkup with him soon. She does have a history of high cholesterol. She has a history rheumatoid arthritis and gets infusions. She states that the pain was more like a pressure and it was sharp on her chest causing her shortness of breath. Got worse with deep breaths. She called her daughter who recommended she takes nitroglycerin and this made it better. Currently she is chest pain-free. She denies any other medical issues. No abdominal pain. No nausea or vomiting. No urinary or bowel movement issues. Per patient she feels fine. She was brought here by ambulance for this. Pain was 6 out of 10 PFSH Past Medical History Hx Anticoagulant Therapy: Yes Arthritis: Yes (RHEUMATOID ARTHRITIS) Asthma: No Blood Disorders: No Anxiety: Yes Depression: Yes Heart Rhythm Problems: No Cancer: Yes (LEFT BREAST -LUMPECTOMY ) Cardiovascular Problems: Yes ([place] 2000) High Cholesterol: No Chemotherapy: No Chest Pain: No Congestive Heart Failure: No COPD: No Cerebrovascular Accident: No Diabetes: No Endocrine: Yes Gastrointestinal Disorders: Yes (GERD) GERD: Yes Glaucoma: No Genitourinary: No Headaches: Yes Hepatitis: No Hiatal Hernia: No Hypertension: Yes Immune Disorder: No Kidney Stones: No Musculoskeletal: Yes (OA, RA, OSTEOPOROSIS) Neurologic: No Psychiatric: Yes (ANXIETY) Reproductive: No Respiratory: Yes (HX PE, SLEEP APNEA/ CPAP) Myocardial Infarction: No Radiation Therapy: Yes Renal Failure: No Seizures: No Sleep Apnea: Yes Thyroid Disease: Yes Ulcer: No PNEUMOCCOCAL Vaccine (Year): 2 Past Surgical History Abdominal Surgery: No AICD: No Body Medical Devices: HARDWARE LEFT INDEX & SMALL FINGER Cardiac Surgery: No Ear Surgery: No Endocrine Surgery: No Eye Surgery: Yes (RASHIDA. CATARACT EXTRACT.) Genitourinary Surgery: No Gynecologic Surgery: Yes (D&C) Joint Replacement: No Oral Surgery: Yes (TONSILLECTOMY) Pacemaker: No Thoracic Surgery: Yes (LEFT BREAST LUMPECTOMY) Other Surgery: Yes Social History Alcohol Use: No Tobacco Use: No Substance Use: No Allergies-Medications (Allergen,Severity, Reaction): Coded Allergies: aspirin (Unverified Allergy, Severe, hives, 12/28/16) Reported Meds & Prescriptions Reported Meds & Active Scripts Active Keflex (Cephalexin) 500 Mg Cap 500 Mg PO Q12H Reported Crestor (Rosuvastatin Calcium) 20 Mg Tab 20 Mg PO DAILY Levothyroxine (Levothyroxine Sodium) 150 Mcg Tab 150 Mcg PO DAILY Remicade Inj (Infliximab) 100 Mg Inj 0 Folate (Folic Acid) 1 Mg Tab 1 Mg PO DAILY Lexapro (Escitalopram Oxalate) 20 Mg Tab 20 Mg PO DAILY Diclofenac Sodium DR (Diclofenac Sodium) 75 Mg Tabdr 75 Mg PO DAILY Plavix (Clopidogrel Bisulfate) 75 Mg Tab 75 Mg PO DAILY Calcium 500 +D (Calcium Carbonate-Cholecalciferol) 500-400 Mg-Unit Tab 1 Tab PO DAILY Review of Systems Except as stated in HPI: all other systems reviewed are Neg Physical Exam Narrative GENERAL: SKIN: Warm and dry. HEAD: Atraumatic. Normocephalic. EYES: Pupils equal and round 4 mms reactive to light and accommodation. No scleral icterus. No injection or drainage. ENT: No nasal bleeding or discharge. Mucous membranes pink and moist. Tongue is midline. No uvula deviation. NECK: Trachea midline. No JVD. CARDIOVASCULAR: Regular rate and rhythm. No murmurs, S3, S4. RESPIRATORY: No accessory muscle use. Clear to auscultation. Breath sounds equal bilaterally. GASTROINTESTINAL: Abdomen soft, non-tender, nondistended. Hepatic and splenic margins not palpable. MUSCULOSKELETAL: Extremities without clubbing, cyanosis, or edema. No obvious deformities. Full range of motion of the upper and lower extremity is bilaterally. 2+ pulses bilaterally. NEUROLOGICAL: Awake and alert. No obvious cranial nerve deficits. Motor grossly within normal limits. Five out of 5 muscle strength in the arms and legs. Normal speech. PSYCHIATRIC: Appropriate mood and affect; insight and judgment normal. Data Data Last Documented VS Vital Signs Date Time Temp Pulse Resp B/P (MAP) Pulse Ox O2 Delivery O2 Flow Rate FiO2 08/03/17 12:05 97.3 80 16 177/87 (117) 99 Orders Orders Electrocardiogram (08/03/17 12:00) Complete Blood Count With Diff (08/03/17 12:00) Basic Metabolic Panel (Bmp) (08/03/17 12:00) Ckmb (Isoenzyme) Profile (08/03/17 12:00) Troponin I (08/03/17 12:00) Chest, Single Ap (08/03/17 12:00) Iv Access Insert/Monitor (08/03/17 12:00) Ecg Monitoring (08/03/17 12:00) Oxygen Administration (08/03/17 12:00) Oximetry (08/03/17 12:00) MDM Medical Decision Making Medical Screen Exam Complete: Yes Emergency Medical Condition: Yes Medical Record Reviewed: Yes Differential Diagnosis Chest pain versus ACS versus a typical chest pain versus angina versus pleurisy versus pneumonia versus normal exam Narrative Course 82-year-old female that presents to the ED for evaluation of chest pain. Patient was properly examined and was found to have signs and symptoms concerning for ACS. Labs and imaging were ordered. Patient was really seen in the ambulance triage area. I instructed ED charge nurse and ED nurse in triage to please have a bed available for this patient she needs to be on a monitor. Labs and imaging were ordered. Patient was not given aspirin as she is allergic to aspirin. Case will be signed out to incoming provider pending disposition and plan. Erasmo Toure Aug 03, 2017 12:40
--- NOTE | 2017-08-03 12:59 | RADRPT ---
EXAM DATE/TIME: 08/03/2017 12:39 [facility] COMPARISON: CHEST SINGLE AP, July 07, 2016, 1:10. INDICATIONS : Weakness, dizziness, confusion, short of breath, chest pressure. MEDICAL HISTORY : Myocardial infarction. Carcinoma, breast. Hypertension. SURGICAL HISTORY : Infusaport right ENCOUNTER: Initial ACUITY: 2 days PAIN SCORE: 1/10 LOCATION: Bilateral chest FINDINGS: A single view of the chest demonstrates the lungs to be symmetrically aerated without evidence of mas s, infiltrate or effusion. The cardiomediastinal contours are unremarkable. Osseous structures are intact and stable. Right-sided central remains in place. Left sided surgical clips in the left axilla are stable.. CONCLUSION: No acute disease. No significant change has occurred. Kenney Nathan MD on August 03, 2017 at 12:57 Board Certified Radiologist. This report was verified electronically.
--- NOTE | 2017-08-03 13:25 | PD ---
Physical Exam Date Seen by Provider: Aug 03, 2017 Time Seen by Provider: 13:20 Narrative 82-year-old female presents to the emergency department for evaluation of midsternal chest pain that started this morning. Patient states her pain is much better than it was previously. She did arrive via EMS. Patient currently rates the pain 3/10, throbbing, worse with deep breathing. Patient has significant past medical history of rheumatoid arthritis, coronary artery disease and previous GA in 2000, PE, breast cancer, hypertension, hyperlipidemia , obstructive sleep apnea and doesn't use CPAP, osteoporosis. Patient states her bindery helper is Dr. Kendall. She denies having any recent stress test or cardiac catheterization. She states she has not had chest pain like this before. Patient is a poor historian. Her daughter is at bedside who gives further details. Patient denies being on anticoagulants. She is allergic to aspirin. She denies any recent surgery or travel. No hemoptysis. No leg edema. Moderate severity. GENERAL: Well-nourished, well-developed elderly female patient, afebrile. SKIN: Focused skin assessment warm/dry. HEAD: Normocephalic. Atraumatic. EYES: No scleral icterus. No injection or drainage. NECK: Supple, trachea midline. No JVD or lymphadenopathy. CARDIOVASCULAR: Regular rate and rhythm without murmurs, gallops, or rubs. Bilateral radial and pedal pulses are 2+. RESPIRATORY: Breath sounds equal bilaterally. No accessory muscle use. Lung sounds are clear to auscultation. GASTROINTESTINAL: Abdomen soft, non-tender, nondistended. MUSCULOSKELETAL: No cyanosis, or edema. BACK: Nontender without obvious deformity. No CVA tenderness. Data Data Last Documented VS Vital Signs Date Time Temp Pulse Resp B/P (MAP) Pulse Ox O2 Delivery O2 Flow Rate FiO2 08/03/17 16:37 81 16 173/96 (121) 98 Room Air 08/03/17 12:05 97.3 Orders Orders Electrocardiogram (08/03/17 12:00) Complete Blood Count With Diff (08/03/17 12:00) Basic Metabolic Panel (Bmp) (08/03/17 12:00) Ckmb (Isoenzyme) Profile (08/03/17 12:00) Troponin I (08/03/17 12:00) Chest, Single Ap (08/03/17 12:00) Iv Access Insert/Monitor (08/03/17 12:00) Ecg Monitoring (08/03/17 12:00) Oxygen Administration (08/03/17 12:00) Oximetry (08/03/17 12:00) Act Partial Throm Time (Ptt) (08/03/17 13:18) Prothrombin Time / Inr (Pt) (08/03/17 13:18) D-Dimer (08/03/17 13:18) Ct Pulmonary Angiogram (08/03/17 ) Labs Laboratory Tests Test 08/03/17 13:20 08/03/17 15:00 White Blood Count 9.7 TH/MM3 Red Blood Count 5.37 MIL/MM3 Hemoglobin 16.2 GM/DL Hematocrit 48.2 % Mean Corpuscular Volume 89.8 FL Mean Corpuscular Hemoglobin 30.2 PG Mean Corpuscular Hemoglobin Concent 33.6 % Red Cell Distribution Width 17.2 % Platelet Count 214 TH/MM3 Mean Platelet Volume 8.2 FL Neutrophils (%) (Auto) 63.3 % Lymphocytes (%) (Auto) 23.3 % Monocytes (%) (Auto) 10.8 % Eosinophils (%) (Auto) 1.6 % Basophils (%) (Auto) 1.0 % Neutrophils # (Auto) 6.2 TH/MM3 Lymphocytes # (Auto) 2.3 TH/MM3 Monocytes # (Auto) 1.1 TH/MM3 Eosinophils # (Auto) 0.2 TH/MM3 Basophils # (Auto) 0.1 TH/MM3 CBC Comment DIFF FINAL Differential Comment Blood Urea Nitrogen 12 MG/DL Creatinine 0.76 MG/DL Random Glucose 78 MG/DL Calcium Level 9.1 MG/DL Sodium Level 142 MEQ/L Potassium Level 4.0 MEQ/L Chloride Level 109 MEQ/L Carbon Dioxide Level 27.7 MEQ/L Anion Gap 5 MEQ/L Estimat Glomerular Filtration Rate 73 ML/MIN Total Creatine Kinase 58 U/L Troponin I LESS THAN 0.02 NG/ML Prothrombin Time 10.7 SEC Prothromb Time International Ratio 1.1 RATIO Activated Partial Thromboplast Time 26.0 SEC D-Dimer Quantitative (PE/DVT) 1.28 MG/L FEU [facility] Supervised Visit with LACEY: No Differential Diagnosis Last Impressions Chest X-Ray 08/03/17 1200 Signed Impressions: Service Date/Time: Thursday, August 03, 2017 12:39 - CONCLUSION: No acute disease. No significant change has occurred. Kenney Nathan MD CT Angiography 08/03/17 0000 Signed Impressions: Service Date/Time: Thursday, August 03, 2017 17:39 - CONCLUSION: Negative for central pulmonary emboli Degenerative changes in the thoracic spine Calcified soft and soft plaque nondilated descending thoracic aorta progressed in the interval. Jg Sanches MD FACR Narrative Course 82-year-old elderly female presents to the emergency department for evaluation of midsternal chest pain, worse with deep breathing that started this morning. She does have a history of GA and PE. EKG shows sinus rhythm, heart rate 77, no acute ST changes. CBC, BMP, CK, troponin, PTT, PT/INR, d-dimer ordered and pending. Chest x-ray is ordered and pending. Patient is not given aspirin due to her allergy. CBC shows no acute abnormal. BMP shows no acute abnormality. CK is 58. Troponin is less than 0.02. Coags are unremarkable. D-dimer is 1.28. Chest x- ray shows no acute disease. CT pulmonary angiogram is negative for PE. Patient will be admitted to the chest pain center for further evaluation. She agrees to this. Diagnosis Primary Impression: Chest pain Qualified Codes: R07.9 - Chest pain, unspecified Admitting Information Admitting Physician Requests: Adelia Spaulding Aug 03, 2017 13:25
--- NOTE | 2017-08-03 14:16 | EKG ---
Date Performed: 08/03/2017 Time Performed: 12:03:28 PTAGE: 82 years EKG: Sinus rhythm MINIMAL VOLTAGE CRITERIA FOR LVH, CONSIDER NORMAL VARIANT NONSPECIFIC ST & T-WAVE ABNORMALITY BORDER LINE ECG Compared to prior electrocardiogram, rate has increased PREVIOUS TRACING : 06/15/2017 19.39 DOCTOR: Fred Vale Interpretating Date/Time 08/03/2017 14:14:54
[2017-08-03 14:17] LABS: AUTOMATED NEUTROPHIL # 6.2 TH/MM3 (1.8-7.7); BASOPHIL # 0.1 TH/MM3 (0-0.2); EOSINOPHIL # 0.2 TH/MM3 (0-0.4); EOSINOPHIL % 1.6 % (0.0-4.0); HEMATOCRIT 48.2 % (35.0-46.0); HEMOGLOBIN 16.2 GM/DL (11.6-15.3); LYMPH % 23.3 % (9.0-44.0); LYMPHOCYTE # 2.3 TH/MM3 (1.0-4.8); MEAN CELL VOLUME 89.8 FL (80.0-100.0); MEAN CORPUSCULAR HEMOGLOBIN 30.2 PG (27.0-34.0); MEAN CORPUSCULAR HGB CONC 33.6 % (32.0-36.0); MEAN PLATELET VOLUME 8.2 FL (7.0-11.0); MONO % 10.8 % (0.0-8.0); MONOCYTE # 1.1 TH/MM3 (0-0.9); NEUT % 63.3 % (16.0-70.0); PLATELET COUNT 214 TH/MM3 (150-450); RED BLOOD COUNT 5.37 MIL/MM3 (4.00-5.30); RED CELL DISTRIBUTION WIDTH 17.2 % (11.6-17.2); WHITE BLOOD COUNT 9.7 TH/MM3 (4.0-11.0)
[2017-08-03 14:37] LABS: BICARBONATE 27.7 MEQ/L (21.0-32.0); BLOOD UREA NITROGEN 12 MG/DL (7-18); CALCIUM 9.1 MG/DL (8.5-10.1); CHLORIDE 109 MEQ/L (98-107); CREATININE 0.76 MG/DL (0.50-1.00); GLOMERULAR FILTRATION RATE 73 ML/MIN (>89); GLUCOSE,RANDOM 78 MG/DL (74-106); SODIUM (NA) 142 MEQ/L (136-145)
[2017-08-03 14:41] LABS: TROPONIN I LESS THAN 0.02 NG/ML (0.02-0.05)
[2017-08-03 16:23] LABS: INTERNATIONAL NORMALIZED RATIO 1.1 RATIO; PROTHROMBIN TIME - PATIENT 10.7 SEC (9.8-11.6)
[2017-08-03 16:30] LABS: D-DIMER 1.28 MG/L FEU (0.00-0.50)
[2017-08-03 16:37] VITALS: BP 173/96; PULSE 81; RESP 16; O2SAT 98
--- NOTE | 2017-08-03 17:55 | RADRPT ---
EXAM DATE/TIME: 08/03/2017 17:39 [place] COMPARISON: CT PULMONARY ANGIOGRAM, July 07, 2016, 3:37. INDICATIONS : Chest pain. IV CONTRAST: 75 cc Omnipaque 350 (iohexol) IV RADIATION DOSE: 8.03 CTDIvol (mGy) MEDICAL HISTORY : Cardiovascular disease. Hypertension. Carcinoma, breast. SURGICAL HISTORY : None. ENCOUNTER: Initial ACUITY: 1 day PAIN SCALE: 5/10 LOCATION: Bilateral chest TECHNIQUE: Volumetric scanning of the chest was performed using a pulmonary embolism protocol MIP images were re constructed. Using automated exposure control and adjustment of the mA and/or kV according to patien t size, radiation dose was kept as low as reasonably achievable to obtain optimal diagnostic quality images. DICOM format image data is available electronically for review and comparison. Follow-up recommendations for detected pulmonary nodules are based at a minimum on nodule size and pa tient risk factors according to Fleischner Society Guidelines. FINDINGS: The lungs are clear. There is no axillary adenopathy. There is no mediastinal adenopathy. There is good visualization of the central pulmonary vessels without pulmonary emboli. Moderate artery calcifications are noted. Stent is seen in the LAD. The ascending aorta appears mildly dilated. The descending aorta shows large amount of pleural plaqu e and soft plaque posteriorly and could be an old chronic small dissection The Upper abdominal contents are unremarkable. CONCLUSION: Negative for central pulmonary emboli Degenerative changes in the thoracic spine Calcified soft and soft plaque nondilated descending thoracic aorta progressed in the interval. Jg Sanches MD FACR on August 03, 2017 at 17:50 Board Certified Radiologist. This report was verified electronically.
[2017-08-03] MEDS ORDERED: IOHEXOL 350 MG/ML 10 ML VIAL (for RAD DIAG) IVCONTRAST ONE (18:12)
[2017-08-03 18:30] VITALS: BP 156/76; PULSE 80; RESP 16; O2SAT 98
[2017-08-03] MEDS ORDERED: SODIUM CHLORIDE 0.9% FLUSH 10 ML FLUSH IV FLUSH PRN (19:00)
[2017-08-03 19:40] VITALS: BP 160/75; PULSE 81; RESP 16; TEMP 97.9; O2SAT 99
[2017-08-03 20:27] LABS: TROPONIN I LESS THAN 0.02 NG/ML (0.02-0.05)
[2017-08-03] MEDS: SODIUM CHLORIDE 0.9% FLUSH 10 ML FLUSH IV FLUSH SCH (21:00)
[2017-08-03 22:14] VITALS: PULSE 92
[2017-08-03 23:05] VITALS: BP 162/74; PULSE 84; RESP 16; TEMP 98.1; O2SAT 97
[2017-08-04 00:10] VITALS: PULSE 75
[2017-08-04 00:41] LABS: TROPONIN I LESS THAN 0.02 NG/ML (0.02-0.05)
[2017-08-04 03:20] VITALS: BP 133/74; PULSE 86; RESP 17; TEMP 98.1; O2SAT 97
[2017-08-04 04:09] VITALS: PULSE 70
[2017-08-04 07:45] VITALS: BP 135/81; PULSE 88; RESP 18; TEMP 97.4; O2SAT 96
[2017-08-04] MEDS ORDERED: LEVOTHYROXINE SODIUM 150 MCG TAB PO SCH (07:53)
[2017-08-04] MEDS ORDERED: diphenhydrAMINE HCL 25 MG CAP PO ONE (08:00)
--- NOTE | 2017-08-04 08:04 | HHI.HP ---
[facility] Primary Care Physician Salvatore Beaulieu DO Chief Complaint Chest pain History of Present Illness This is a 82-year-old female history of hyperlipidemia, polycythemia, hypothyroidism, rheumatoid arthritis, TIA, and CAD that presents to ED via [facility] with complaint of chest discomfort. Patient states that she developed a discomfort in the center of her chest described as a heaviness little after having breakfast and while she is getting ready for a shower. She states it hurt to take in a deep breath and was short of breath. No nausea or diaphoresis. Found nothing to worsen or improve. She called her daughter who immediately called 911. She was transported to the hospital. She states his symptoms eventually resolved within about 2 hours. They have not recurred. States she does not routinely have chest discomfort. She states she follows Dr. Joel Kendall of cardiology. I reviewed her records she had a heart catheterization 07/01/2010 revealing 90% lesion of the LAD however it was a small vessel less than 2 mm and medical management was started with amlodipine being added to her list. She does not recall being on amlodipine. Cannot recall having a heart catheterization since then. States she has an appointment with her metal drill press operator in August. Denies recent illness. Denies fevers or chills. (Tristen Cerrato) Review of Systems General: Patient denies fevers, chills, and recent travel. HEENT: Patient denies headache, sore throat, difficulty swallowing. Cardiovascular: Has the chest discomfort as mentioned above. Denies sensation of heart beating rapidly or irregularly. No syncope. Denies diaphoresis. Respiratory: She was short of breath. Also felt as if his heart to take in a deep breath. Denies inspirational chest discomfort. Denies coughing wheezing or hemoptysis. GI: Patient denies nausea, vomiting, diarrhea, abdominal pain, bloody stools. Musculoskeletal: Patient denies joint pain or edema. Denies calf pain or edema. Neurovascular: Patient denies numbness, tingling, weakness in extremities. Denies headache. Endocrine: Denies polyuria and polydipsia. Hematologic: Denies easy bruising. Skin: Denies rash or itching. (Tristen Cerrato) Past Family Social History Allergies: Coded Allergies: aspirin (Unverified Allergy, Severe, hives, 12/28/16) Past Medical History CAD with 90% stenosis of the LAD and a small vessel less than 2 mm. Hyperlipidemia, hypothyroidism, polycythemia, rheumatoid arthritis, TIA. Denies diabetes. Past Surgical History Cardiac catheterization without intervention. Left breast lumpectomy. Cataracts. Tonsillectomy. Left index and small finger. Reported Medications Reported Meds & Active Scripts Active Reported Crestor (Rosuvastatin Calcium) 20 Mg Tab 20 Mg PO DAILY Levothyroxine (Levothyroxine Sodium) 150 Mcg Tab 150 Mcg PO DAILY Remicade Inj (Infliximab) 100 Mg Inj 0 Folate (Folic Acid) 1 Mg Tab 1 Mg PO DAILY Plavix (Clopidogrel Bisulfate) 75 Mg Tab 75 Mg PO DAILY Calcium 500 +D (Calcium Carbonate-Cholecalciferol) 500-400 Mg-Unit Tab 1 Tab PO DAILY Active Ordered Medications Current Medications Medications (Trade) Dose Ordered Sig/Amairani Route Start Time Stop Time Status Last Admin (NS Flush) 2 ml UNSCH PRN IV FLUSH 08/03/17 19:00 (NS Flush) 2 ml BID IV FLUSH 08/03/17 21:00 08/03/17 21:00 (Benadryl) 25 mg NOW ONCE PO 08/04/17 08:00 08/04/17 08:01 (Plavix) 75 mg DAILY PO 08/04/17 09:00 (Lipitor) 40 mg DAILY PO 08/04/17 09:00 (Synthroid) 150 mcg DAILY@0600 PO 08/04/17 07:53 Family History Denies family history of CAD. Social History Lifetime non-smoker. Denies illicit drug use. Denies alcohol use. She lives with her daughter. (Tristen Cerrato) Physical Exam Vital Signs Vital Signs Date Time Temp Pulse Resp B/P (MAP) Pulse Ox O2 Delivery O2 Flow Rate FiO2 08/04/17 07:45 97.4 88 18 135/81 (99) 96 08/04/17 04:09 70 08/04/17 03:20 98.1 86 17 133/74 (93) 97 08/04/17 00:10 75 08/03/17 23:05 98.1 84 16 162/74 (103) 97 08/03/17 22:14 92 08/03/17 22:00 21 08/03/17 19:40 97.9 81 16 160/75 (103) 99 08/03/17 18:30 80 16 156/76 (102) 98 Room Air 08/03/17 16:37 81 16 173/96 (121) 98 Room Air 08/03/17 13:10 100 Room Air 08/03/17 13:10 87 16 99 Room Air 08/03/17 12:05 97.3 80 16 177/87 (117) 99 Physical Exam GENERAL: This is a well-nourished, well-developed patient, in no apparent distress. Patient speaks in clear complete sentences. Patient is pleasant. HEENT: Head is atraumatic and normocephalic. Neck is supple without lymphadenopathy and trachea is midline. No JVD or carotid bruits. CARDIOVASCULAR: Regular rate and rhythm without murmurs, gallops, or rubs. RESPIRATORY: Clear to auscultation. Breath sounds equal bilaterally. No wheezes , rales, or rhonchi. Chest wall is nontender. No use of accessory muscles. GASTROINTESTINAL: Abdomen is nontender, nondistended. Abdomen soft. No obvious pulsatile mass or bruit. No CVA tenderness. Strong femoral pulses bilaterally. Normal bowel sounds in all quadrants. MUSCULOSKELETAL: There are deformities to the wrist and hand from her rheumatoid arthritis. Patient is moving upper and lower extremities freely. No calf tenderness or edema, no Homans sign. Strong pulses in upper and lower extremities. NEUROLOGICAL: Patient is alert and oriented. Cranial nerves 2-12 are grossly intact. No focal deficits and speech is clear. SKIN: No rash and turgor is normal. Laboratory Laboratory Tests Test 08/03/17 13:20 08/03/17 15:00 08/03/17 19:49 08/04/17 00:00 White Blood Count 9.7 Red Blood Count 5.37 Hemoglobin 16.2 Hematocrit 48.2 Mean Corpuscular Volume 89.8 Mean Corpuscular Hemoglobin 30.2 Mean Corpuscular Hemoglobin Concent 33.6 Red Cell Distribution Width 17.2 Platelet Count 214 Mean Platelet Volume 8.2 Neutrophils (%) (Auto) 63.3 Lymphocytes (%) (Auto) 23.3 Monocytes (%) (Auto) 10.8 Eosinophils (%) (Auto) 1.6 Basophils (%) (Auto) 1.0 Neutrophils # (Auto) 6.2 Lymphocytes # (Auto) 2.3 Monocytes # (Auto) 1.1 Eosinophils # (Auto) 0.2 Basophils # (Auto) 0.1 CBC Comment DIFF FINAL Differential Comment Blood Urea Nitrogen 12 Creatinine 0.76 Random Glucose 78 Calcium Level 9.1 Sodium Level 142 Potassium Level 4.0 Chloride Level 109 Carbon Dioxide Level 27.7 Anion Gap 5 Estimat Glomerular Filtration Rate 73 Total Creatine Kinase 58 35 43 Troponin I LESS THAN 0.02 LESS THAN 0.02 LESS THAN 0.02 Prothrombin Time 10.7 Prothromb Time International Ratio 1.1 Activated Partial Thromboplast Time 26.0 D-Dimer Quantitative (PE/DVT) 1.28 (Tristen Cerrato) Result Diagram: 08/03/17 1320 08/03/17 1320 Imaging Last 48 hours Impressions Chest X-Ray 08/03/17 1200 Signed Impressions: Service Date/Time: Thursday, August 03, 2017 12:39 - CONCLUSION: No acute disease. No significant change has occurred. Kenney Nathan MD CT Angiography 08/03/17 0000 Signed Impressions: Service Date/Time: Thursday, August 03, 2017 17:39 - CONCLUSION: Negative for central pulmonary emboli Degenerative changes in the thoracic spine Calcified soft and soft plaque nondilated descending thoracic aorta progressed in the interval. Jg Sanches MD FACR Course EKGs are sinus rhythm with nonspecific lateral ST-T depressions which were present on prior EKGs. (Tristen Cerrato) Caprini VTE Risk Assessment Caprini VTE Risk Assessment: Mod/High Risk (score >= 2) Caprini Risk Assessment Model Point Value = 1 Point Value = 2 Point Value = 3 Point Value = 5 Age 41-60 Minor surgery BMI > 25 kg/m2 Swollen legs Varicose veins or History of unexplained or recurrent spontaneous Oral contraceptives or hormone replacement Sepsis (< 1 month) Serious lung disease, including pneumonia (< 1 month) Abnormal pulmonary function Acute myocardial infarction Congestive heart failure (< 1 month) History of inflammatory bowel disease Medical patient at bed rest Age 61-74 Arthroscopic surgery Major open surgery (> 45 min) Laparoscopic surgery (> 45 min) Malignancy Confined to bed (> 72 hours) Immobilizing plaster cast Central venous access Age >= 75 History of VTE Family history of VTE Factor V Leiden Prothrombin [id number] Lupus anticoagulant Anticardiolipin antibodies Elevated serum homocysteine Heparin-induced thrombocytopenia Other congenital or acquired thrombophilia Stroke (< 1 month) Elective arthroplasty Hip, pelvis, or leg fracture Acute spinal cord injury (< 1 month) Prophylaxis Regimen Total Risk Factor Score Risk Level Prophylaxis Regimen 0-1 Low Early ambulation 2 Moderate Order ONE of the following: *Sequential Compression Device (SCD) *Heparin 5000 units SQ BID 3-4 Higher Order ONE of the following medications: *Heparin 5000 units SQ TID *Enoxaparin/Lovenox 40 mg SQ daily (WT < 150 kg, CrCl > 30 mL/min) *Enoxaparin/Lovenox 30 mg SQ daily (WT < 150 kg, CrCl > 10-29 mL/min) *Enoxaparin/Lovenox 30 mg SQ BID (WT < 150 kg, CrCl > 30 mL/min) AND/OR *Sequential Compression Device (SCD) 5 or more Highest Order ONE of the following medications: *Heparin 5000 units SQ TID (Preferred with Epidurals) *Enoxaparin/Lovenox 40 mg SQ daily (WT < 150 kg, CrCl > 30 mL/min) *Enoxaparin/Lovenox 30 mg SQ daily (WT < 150 kg, CrCl > 10-29 mL/min) *Enoxaparin/Lovenox 30 mg SQ BID (WT < 150 kg, CrCl > 30 mL/min) AND *Sequential Compression Device (SCD) (Tristen Cerrato) Assessment and Plan Assessment and Plan * Chest pain: Patient has had serial cardiac enzymes and EKGs for ruling out purposes. She had a CTA that ruled out pulmonary embolus. She will be seen by Dr. Wang of cardiology in the chest pain center. I discussed this patient with her metal drill press operator Dr. Joel Kendall and he is leaning towards medical management. He is going to call the office to see if she currently is on amlodipine but if not this will be added and patient would likely be discharged without further testing. She should then follow-up with her metal drill press operator and PCP. Return to ED for interval issues. * CAD: Continue meds. Follow-up with her metal drill press operator. * Hyperlipidemia: Continue current medication. * Hypothyroidism: Continue current medication. * Polycythemia: Patient states she had lobotomy about 4 weeks ago. She follows up with hematology/oncology. * Rheumatoid arthritis: Continue current therapy. Patient is stable at this time. She is agreeable to this plan. (Tristen Cerrato) Assessment and Plan The patient was discussed discussed with NIYA, medical records reviewed, and then the patient was seen and examined personally. I am in agreement with the record as entered above and with the plan as discussed with Dr. Kendall. Syed Wang MD, FACP, FACC, Discussed Condition With Outcome and discharge course discussed with patient along with recommendation for follow-up with her grain mill products inspector for her complaint of itching (Syed Wang MD) Tristen Cerrato Aug 04, 2017 08:04 Syed Wang MD Aug 04, 2017 08:36
[2017-08-04] MEDS ORDERED: amLODIPine BESYLATE 5 MG TAB PO SCH ×3 (08:15→09:00)
[2017-08-04] MEDS ORDERED: PILL SPLITTER OTHER PRN (08:30)
[2017-08-04] MEDS: SODIUM CHLORIDE 0.9% FLUSH 10 ML FLUSH IV FLUSH SCH (08:31)
[2017-08-04] MEDS ORDERED: CLOPIDOGREL 75 MG TAB PO SCH (09:00)
[2017-08-04] MEDS ORDERED: ATORVASTATIN 40 MG TAB PO SCH (09:00)
--- NOTE | 2017-08-04 09:01 | HHI.DCPOC ---
Discharge Care Plan Diagnosis: (1) Chest pain (2) CAD (coronary artery disease) (3) HTN (hypertension) (4) Hyperlipidemia Goals to Promote Your Health * To prevent worsening of your condition and complications * To maintain your health at the optimal level Directions to Meet Your Goals Take your medications as prescribed Follow your dietary instruction Follow activity as directed Keep your appointments as scheduled Take your immunizations and boosters as scheduled If your symptoms worsen call your PCP, if no PCP go to Urgent Care Center or Emergency Room Smoking is Dangerous to Your Health. Avoid second hand smoke Call the 24-hour hour crisis hotline for domestic abuse at Tristen Cerrato Aug 04, 2017 09:01
[2017-08-04] MEDS ORDERED: AMLO2.5T PO (09:03)
--- NOTE | 2017-08-04 10:38 | EKG ---
Date Performed: 08/03/2017 Time Performed: 23:08:14 PTAGE: 82 years EKG: Sinus rhythm NONSPECIFIC ST & T-WAVE ABNORMALITY BORDERLINE ECG No significant change PREVIOUS TRACING : 08/03/2017 20.15 DOCTOR: Syed Wang Interpretating Date/Time 08/04/2017 10:36:49
--- NOTE | 2017-08-04 10:39 | EKG ---
Date Performed: 08/03/2017 Time Performed: 20:15:53 PTAGE: 82 years EKG: Sinus rhythm MODERATE ST DEPRESSION ABNORMAL ECG No significant change PREVIOUS TRACING : 08/03/2017 12.03 DOCTOR: Syed Wang Interpretating Date/Time 08/04/2017 10:38:10
== END 2017-08-04 11:04 | disposition home or self-care (01) ==
LOC: NEPC 11:34 → NEDA 18:08 → NEPHCDU 19:16
PROVIDERS: ADMIT Internal Medicine Cardiovascular Disease; ATTEND Internal Medicine Cardiovascular Disease
DX: R07.89 Other chest pain (principal); R06.02 Shortness of breath; I25.10 Atherosclerotic heart disease of native coronary artery without angina pectoris; R94.31 Abnormal electrocardiogram [ECG] [EKG]; I10 Essential (primary) hypertension; E78.00 Pure hypercholesterolemia, unspecified; E03.9 Hypothyroidism, unspecified; D75.1 Secondary polycythemia; G47.33 Obstructive sleep apnea (adult) (pediatric); I25.2 Old myocardial infarction; K21.9 Gastro-esophageal reflux disease without esophagitis; M06.9 Rheumatoid arthritis, unspecified; F41.9 Anxiety disorder, unspecified; F32.9 Major depressive disorder, single episode, unspecified; M81.0 Age-related osteoporosis without current pathological fracture; Z79.899 Other long term (current) drug therapy; Z85.3 Personal history of malignant neoplasm of breast; Z86.711 Personal history of pulmonary embolism
CPT/HCPCS: 71045; 71275; 80048; 82550; 84484; 85025; 85379; 85610; 85730; 93005; 99285; G0378; J1642; Q9967